=== PATIENT | female | born 1960 | race Caucasian/White ===

== ENCOUNTER 2020-06-09 08:38 | Inpatient (IN) ==
--- NOTE | 2020-06-02 13:29 | PAT Medication Instructions ---
Medication Instructions Date of Service June 02, 2020 Home Medications Sambucus 1 dose PO QAM albuterol sulfate 1 inh INHALATION QID PRN arginine oxoglurate [L-Arginine(alpha-ketoglutarat)] 350 mg PO QAM bupropion HCl 150 mg PO QAM bupropion HCl [Wellbutrin] 100 mg PO BID cholecalciferol (vitamin D3) [Vitamin D3] 25 mcg PO QAM fluticasone furoate-vilanterol [Breo Ellipta] 1 inh INHALATION QAM fluticasone propionate 1 spray INTRANASAL QAM milk thistle 1 cap PO QAM montelukast 10 mg PO QAM omalizumab [Xolair] 75 mg SUBCUT MONTHLY vitamin E 1 dose PO QAM ASK your prescriber and surgeon omalizumab [Xolair] 75 mg SUBCUT MONTHLY STOP taking 2 weeks before surgery (or as soon as possible if surgery is within 2 weeks) Sambucus 1 dose PO QAM arginine oxoglurate [L-Arginine(alpha-ketoglutarat)] 350 mg PO QAM milk thistle 1 cap PO QAM vitamin E 1 dose PO QAM DO NOT take the morning of surgery cholecalciferol (vitamin D3) [Vitamin D3] 25 mcg PO QAM montelukast 10 mg PO QAM Take morning of surgery With a small sip of water, OTHERWISE NOTHING TO EAT OR DRINK AFTER MIDNIGHT: albuterol sulfate 1 inh INHALATION QID PRN (use if needed; please bring rescue inhaler with you to hospital day of surgery if possible) bupropion HCl 150 mg PO QAM bupropion HCl [Wellbutrin] 100 mg PO BID fluticasone furoate-vilanterol [Breo Ellipta] 1 inh INHALATION QAM fluticasone propionate 1 spray INTRANASAL QAM Take evening before surgery albuterol sulfate 1 inh INHALATION QID PRN (if needed) bupropion HCl [Wellbutrin] 100 mg PO BID Other Notes If you have any questions please call us at [phone] or [phone] or [phone] or [phone]
--- NOTE | 2020-06-03 11:17 | Anesthesiology Consultation ---
Date of Service June 03, 2020 Assessment & Plan (1) Encounter for pre-operative examination: Per assessment on 06/03: Travel screen negative. No known COVID-19 positive contacts or current COVID-19 related symptoms. Surgeon arranged preop COVID testing (scheduled 06/03 [facility]). Awaiting results. Chart Review Chart Review: Acceptable Risk for Surgery and Patient seen in Pre Admission Testing Teaching & Discussion Pre-Anesthesia Teaching/Discussion Notes: Instructed NPO after midnight before surgery,except medications with 15 cc of water. Medication instructions provided according to the PAT guidelines. History Surgery Operation Date: 06/09/20 10:25 Proposed Procedures p L1-L2 Decompression and Fusion Spinal Cord Monitoring - Adrián Soto DO Height/Weight Height: 5 ft 2 in Weight: 82.4 kg Allergies Allergy/AdvReac Type Severity Reaction Status Date / Time walnut Allergy Severe Anaphylaxis Verified 06/03/20 11:30 No Known Drug Allergies Allergy Verified 05/14/20 13:20 Medications Home Medications Medication Instructions Recorded Confirmed Last Taken Sambucus 1 dose PO QAM 05/14/20 05/14/20 Unknown albuterol sulfate 1 inh INHALATION QID PRN 05/14/20 05/14/20 Unknown arginine oxoglurate 350 mg PO QAM 05/14/20 05/14/20 Unknown [L-Arginine(alpha-ketoglutarat)] bupropion HCl 150 mg PO QAM 05/14/20 05/14/20 Unknown bupropion HCl [Wellbutrin] 100 mg PO BID 05/14/20 05/14/20 Unknown cholecalciferol (vitamin D3) 25 mcg PO QAM 05/14/20 05/14/20 Unknown [Vitamin D3] fluticasone furoate-vilanterol 1 inh INHALATION QAM 05/14/20 05/14/20 Unknown [Breo Ellipta] fluticasone propionate 1 spray INTRANASAL QAM 05/14/20 05/14/20 Unknown milk thistle 1 cap PO QAM 05/14/20 05/14/20 Unknown montelukast 10 mg PO QAM 05/14/20 05/14/20 Unknown omalizumab [Xolair] 75 mg SUBCUT MONTHLY 05/14/20 05/14/20 Unknown vitamin E 1 dose PO QAM 05/14/20 05/14/20 Unknown ibuprofen 1 tab PO DAILY 06/03/20 06/03/20 Unknown Past Medical History Medical History Anxiety Asthma stable Chronic back pain History of endometriosis History of migraine headaches Osteoarthritis Sleep apnea CPAP Exercise / Class Metabolic Activity II 4-5 Yardwork/Stairs/Walk up hill Past Family History Family History Father Diabetes Mother History of anesthesia reaction vertigo Past Surgical History Surgical History History of appendectomy History of colonoscopy History of esophagogastroduodenoscopy (EGD) History of laparoscopy History of lumbar fusion History of tooth extraction Past Anesthesia History No Hx of Anesthesia Complications (except post-op nausea) and No Family Hx of Anesthesia Complications (except mother with post-op vertigo-like symptoms) History of PONV History of PONV (+ nausea) and Hx of Motion Sickness Social History Smoking Status: Never smoker Do You Dip or Chew Tobacco: No Hx Alcohol Use: No Hx Substance Use: No substance use type: does not use Review of Systems Patient denies chest pain, shortness of breath, dyspnea on exertion, joint pain, reflux, cough, wheezing, palpitations. Physical Exam Vital Signs VITALS BP 142/81 P 84 TEMP 98.7 SP02 96%RA RESP 18 PHYSICAL Full neck and c-spine range of motion. Full TMJ range of motion. TMD 3.5 finger breaths Mallampati Score 1 Dentition: intact, + crowns (several) Lungs: clear throughout to auscultation Cardiac: regular rate and rhythm, I/ systolic murmur Spine: normal Carotid arteries: negative bruit Extremities: no edema Short neck Testing Laboratory Results 06/03/20 11:41 06/03/20 11:41 PT 9.8 Seconds (9.0-12.0) 06/03/20 11:41 INR 1.0 (0.9-1.1) 06/03/20 11:41 APTT 25.7 Seconds (21.0-31.0) 06/03/20 11:41 Urine Color Yellow 06/03/20 11:41 Urine Appearance Clear (Clear) 06/03/20 11:41 Urine pH 5.5 (4.5-7.5) 06/03/20 11:41 Ur Specific [place] 1.020 (1.000-1.030) 06/03/20 11:41 Urine Protein Negative (Negative) 06/03/20 11:41 Urine Glucose (UA) Negative (Negative) 06/03/20 11:41 Urine Ketones Negative (Negative) 06/03/20 11:41 Urine Nitrite Negative (Negative) 06/03/20 11:41 Ur Leukocyte Esterase Negative (Negative) 06/03/20 11:41 Blood Type O Positive 06/03/20 11:41 Antibody Screen NEGATIVE 06/03/20 11:41 Electrocardiogram Date: 06/03/20 NSR at 85bpm. unconfirmed report. (need to look in [facility] system for EKG tracings > d/t glitch, tracings not crossing over into [employer] system per [facility]) Chest X-Ray Date: 06/03/20 FINDINGS: PA and lateral chest radiographs are compared to study dated 09/20/2012. The cardiomediastinal silhouette is unremarkable. The lungs and pleural spaces are clear. There is no pneumothorax. The skeletal structures are osteopenic. The bony thorax appears intact. Mild degenerative change is noted in the spine. IMPRESSION: No active disease in the chest.
[2020-06-03 12:23] LABS: Basophils # (auto) 0.02 K/uL (0-0.2); Basophils % (auto) 0.3 %; Eosinophils # (auto) 0.36 K/uL (0-0.5); Eosinophils % (auto) 4.9 %; Hematocrit (blood only) 41.1 % (37-47); Hemoglobin 13.6 g/dL (12.0-16.0); Immature Granulocytes # (auto) 0.04 K/uL (0.00-0.02); Immature Granulocytes % (auto) 0.5 %; Lymphocytes # (auto) 1.98 K/uL (1.2-3.4); Lymphocytes % (auto) 26.8 %; Mean Corpuscular Hemoglobin 30.2 pg (25-34); Mean Corpuscular Hgb Conc 33.1 g/dL (32-36); Mean Corpuscular Volume 91.3 fL (80-100); Mean Platelet Volume 9.6 fL (7.4-10.4); Monocytes # (auto) 0.42 K/uL (0.11-0.59); Monocytes % (auto) 5.7 %; Neutrophils # (auto) 4.58 K/uL (1.4-6.5); Neutrophils % (auto) 61.8 %; Platelet Count 242 K/uL (130-400); RDW Coefficient of Variation 13.6 % (11.5-14.5); RDW Standard Deviation 45.5 fL (36.4-46.3)
[2020-06-03 12:24] LABS: Appearance Urine Clear (Clear); Bilirubin Urine Negative (Negative); Blood Urine Negative (Negative); Color Urine Yellow; Glucose Urine UA Negative (Negative); Ketones Urine Negative (Negative); Leukocyte Esterase Urine Negative (Negative); Nitrite Urine Negative (Negative); Protein Urine Negative (Negative); Urobilinogen Urine Negative (Negative); pH Urine 5.5 (4.5-7.5)
[2020-06-03 12:34] LABS: Partial Thromboplastin Time 25.7 Seconds (21.0-31.0); Prothrombin Time 9.8 Seconds (9.0-12.0)
--- NOTE | 2020-06-03 12:43 | XRay Report ---
TWO VIEW CHEST CLINICAL HISTORY: Preoperative examination. FINDINGS: PA and lateral chest radiographs are compared to study dated 09/20/2012. The cardiomediastin al silhouette is unremarkable. The lungs and pleural spaces are clear. There is no pneumothorax. The skeletal structures are osteopenic. The bony thorax appears intact. Mild degenerative change is note d in the spine. IMPRESSION: No active disease in the chest. ACT 112: Negative or not required by law. Electronically signed by: Mac Boss M.D. 06/03/2020 12:42 PM
[2020-06-03 14:12] LABS: BUN Creatinine Ratio 18.3 (10-20); Calcium 8.4 mg/dl (8.5-10.1); Creatinine Clr Calc Pharmacy 87.7 ml/min; Est GFR (Non-African American) 94.9
--- NOTE | 2020-06-04 15:42 | Electrocardiogram Report ---
Test Reason : Blood Pressure : / mmHG Vent. Rate : 085 BPM Atrial Rate : 085 BPM P-R Int : 186 ms QRS Dur : 078 ms QT Int : 382 ms P-R-T Axes : 079 006 062 degrees QTc Int : 454 ms Normal sinus rhythm Normal ECG When compared with ECG of 20-SEP-2012 15:14, No significant change was found Confirmed by Liang Rey ([id number]) on 06/04/2020 3:41:42 PM Referred By: Adrián Soto Confirmed By:Liang Rey
[~2020-06-09 08:38] MED LIST: ACETAMINOPHEN 500 MG TAB PO SCH; CeleBREX 200 MG CAP PO SCH; GABAPENTIN 600 MG DOSE PO SCH; LR 15ML/HR IV SCH; ceFAZolin 1000MG 1,000 MG/7.5 ML SYR IV SCH; ceFAZolin 2000MG 2,000 MG/15 ML SYR IV SCH
[2020-06-09] MEDS ORDERED: PROPOFOL IV EMULSION 10 MG/ML 20 ML VIAL IV ONE (08:55)
[2020-06-09] MEDS ORDERED: LIDOCAINE HCL 2% 2 ML VIAL/AMP(20MG/ML) INFIL ONE (08:55)
[2020-06-09] MEDS ORDERED: HYDROmorphone INJ 2 MG/ML SYR/VIAL ONE (08:55)
[2020-06-09] MEDS ORDERED: ONDANSETRON INJ 2 MG/ML 2 ML VIAL ONE (08:55)
[2020-06-09] MEDS ORDERED: MIDAZOLAM HCL 1 MG/ML 2ML VIAL ONE (08:55)
[2020-06-09] MEDS ORDERED: ROCURONIUM BROMIDE 10 MG/ML 5 ML VIAL IV ONE (08:55)
[2020-06-09] MEDS ORDERED: DEXAMETHASONE SOD INJ 4 MG/ML VIAL ONE (08:55)
[2020-06-09] MEDS ORDERED: SCOPOLAMINE 1 MG TDSY TD ONE ×2 (09:40→09:42)
[2020-06-09] MEDS ORDERED: ePHEDrine sulfate 50 MG/ML AMP IV PRN (09:42)
[2020-06-09] MEDS ORDERED: ONDANSETRON INJ 2 MG/ML 2 ML VIAL IV PRN ×2 (09:42→13:02)
[2020-06-09] MEDS ORDERED: ATROPINE SULFATE 0.1 MG/ML 10ML SYR IV PRN (09:42)
[2020-06-09] MEDS ORDERED: fentaNYL citrate 100 MCG/2 ML VIAL IV PRN (09:42)
--- NOTE | 2020-06-09 09:56 | History & Physical Bridge Note ---
Date of Service June 09, 2020 History & Physical Bridge Note I have examined the patient, reviewed the History & Physical and in the interval since the performance of the History & Physical I have noted the following changes of clinical significance: no changes noted
--- NOTE | 2020-06-09 09:57 | History & Physical Report ---
Date of Service June 09, 2020 Assessment & Plan (1) Neurogenic claudication due to lumbar spinal stenosis: Admission and Anticipated Discharge Date Admission Date: L1-L2 decompression fusion History of Present Illness Chief Complaint: Back and bilateral leg pain Primary Care Provider: NO PCP This is a 59-year-old female known to me presents with chronic persistent back and leg pain. Failing course of nonoperative care is here for surgical intervention. Allergies Allergy/AdvReac Type Severity Reaction Status Date / Time walnut Allergy Severe Anaphylaxis Verified 06/09/20 09:08 No Known Drug Allergies Allergy Verified 06/09/20 09:08 Home Medications Medication Instructions Recorded Confirmed Type Sambucus 1 dose PO QAM 05/14/20 06/09/20 History albuterol sulfate 1 inh INHALATION QID PRN 05/14/20 06/09/20 History arginine oxoglurate 350 mg PO QAM 05/14/20 06/09/20 History [L-Arginine(alpha-ketoglutarat)] bupropion HCl 150 mg PO QAM 05/14/20 06/09/20 History bupropion HCl [Wellbutrin] 100 mg PO BID 05/14/20 06/09/20 History cholecalciferol (vitamin D3) 25 mcg PO QAM 05/14/20 06/09/20 History [Vitamin D3] fluticasone furoate-vilanterol 1 inh INHALATION QAM 05/14/20 06/09/20 History [Breo Ellipta] fluticasone propionate 1 spray INTRANASAL QAM 05/14/20 06/09/20 History milk thistle 1 cap PO QAM 05/14/20 06/09/20 History montelukast 10 mg PO QAM 05/14/20 06/09/20 History omalizumab [Xolair] 75 mg SUBCUT MONTHLY 05/14/20 06/09/20 History vitamin E 1 dose PO QAM 05/14/20 06/09/20 History ibuprofen 1 tab PO DAILY 06/03/20 06/09/20 History cetirizine [Zyrtec] 5 mg PO DAILY 06/09/20 06/09/20 History psyllium husk [Metamucil] 1 tbsp PO DAILY 06/09/20 06/09/20 History Past Med/Surg History Medical History (Updated 06/09/20 @ 09:56 by Adrián Soto DO) Anxiety mild Asthma stable Chronic back pain History of endometriosis History of migraine headaches Osteoarthritis Sleep apnea CPAP Surgical History History of appendectomy History of colonoscopy History of esophagogastroduodenoscopy (EGD) History of laparoscopy History of lumbar fusion History of tooth extraction Family History Father Diabetes Mother History of anesthesia reaction vertigo Social History Smoking Status: Never smoker Second Hand Exposure: No; Do You Dip or Chew Tobacco: No; Hx Alcohol Use: No Hx Substance Use: No Preferred Language: Trinidadian Communication Ability: Effective 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
[2020-06-09] MEDS ORDERED: BACITRACIN INJ 50,000 UNIT VIAL ONE (10:14)
[2020-06-09] MEDS ORDERED: BUPIVACAINE/EPINEPHRINE 0.5% MPF 1:200,000 30 ML VIAL ONE (10:14)
[2020-06-09] MEDS ORDERED: GLYCOPYRROLATE 0.2 MG/ML VIAL ONE (10:42)
[2020-06-09] MEDS ORDERED: NEOSTIGMINE METHYLSULFATE 1 MG/ML 10ML VIAL ONE (10:42)
[2020-06-09] MEDS ORDERED: FLOSEAL HEMOSTATIC MATRIX 10ML TOP ONE (11:04)
--- NOTE | 2020-06-09 11:47 | Operative Report ---
Post Operative Report Pre & Post Diagnosis Operation Date: 06/09/20 10:25 Pre-Op Diagnosis: Neurogenic claudication due to lumbar spinal stenosis. Intervetrebral Disc Degeneration, Lumbar Post-Op Diagnosis: Neurogenic claudication due to lumbar spinal stenosis. Intervetrebral Disc Degeneration, Lumbar I identified the patient and participated in the time-out.: Yes Procedure Operation Date: 06/09/20 10:25 Actual Procedures #1 Lumbar decompression with bilateral medial facetectomies and foraminotomies L1-L2. #2 posterior spinal fusion L1-L2. #3 placement posterior instrumentation L1-L2. #4 interbody fusion L1-L2. #5 placed a peek cage 9 x 26 mm at L1-L2. #6 placement locally harvested morselized autograft in the posterior gutters. #7 placement of I factor interbody space and posterior gutters. Surgeon Adrián Soto, DO Sensitizer Tawnya Dean Estimated Blood Loss 50 Findings See Below The patient is 5 foot 2 weighing over 80 kg with a BMI in excess of 32. Patient's body habitus did add significant technical difficulty acquiring at least 25% increase in the operative time. Specimens None Indications This is a 59-year-old female known to me the presents with above-mentioned diagnosis after failing extensive course of nonoperative care is here for the above-mentioned procedure. Description of Procedure Patient was met with identified informed consent obtained. Patient was then taken to the operative suite underwent a patient placed in a prone position the [employer] top [place] frame. All bony prominences well-padded eyes inspected to ensure no external pressure placed upon them. This point the lumbar spine was prepped and draped in a sterile fashion. Sharp dissection with assistance of Bovie cautery performed down to and exposing the lamina and transverse processes of L1 and L2. For calcified fashion complete laminectomy of L1 was performed including bilateral medial facetectomies and foraminotomies addressing severe spinal stenosis and obvious instability noted by facet hypertrophy and laxity. Pedicle screws then placed in L1 and L2 bilaterally with assistance of fluoroscopy and properly sized rodney placed. By way of a transforaminal portion right a complete discectomy was performed endplates curetted to subcortical bleeding bone and a 9 x 26 mm peek cage filled with I factor tapped in position. The rods and locked into final position bilaterally. The transverse processes of L1 and L2 burred to subcortical bleeding bone. Local autograft and I factor was then placed in the posterior gutters. 15 round ISAIAH drain inserted. The incision was then closed with 1 Vicryl the fascia 2-0 Vicryl subcutaneously and 4 Monocryl for final skin closure. Steri-Strip sterile dressings placed. Patient waken taken PACU stable condition. Please note spinal cord monitoring was utilized throughout the procedure no changes noted. Lastly Tawnya Dean was present at the entire surgery involved the patient positioning complex portions of the surgery and final skin closure. I attest to the content of the Intraoperative Record and any orders documented therein. Any exceptions are noted below.
--- NOTE | 2020-06-09 12:18 | Fluoroscopy Report ---
INTRAOPERATIVE RADIOGRAPHS CLINICAL HISTORY: L1-L2 spinal fusion. Fluoroscopy time: 24 seconds. FINDINGS: 2 spot fluoroscopic views of the lumbar spine are presented. There has been discectomy at L 1-L2 with laminectomy and posterior fusion at this level. Interpedicular screws are in place. The ort hopedic hardware appears intact. Fusion hardware is partially visualized in the lower lumbar spine. IMPRESSION: Intraoperative lumbar spinal fusion images as above. Electronically signed by: Mac Boss M.D. 06/09/2020 12:17 PM
[2020-06-09] MEDS ORDERED: ONDANSETRON 4 MG OD TAB PO PRN (13:02)
[2020-06-09] MEDS ORDERED: DO NOT ADMINISTER FLU VACCINE PRN (13:02)
[2020-06-09] MEDS ORDERED: SOD PHOSPHATE/SOD BIPHOSPHATE ENEMA 132 ML BTL PR PRN (13:02)
[2020-06-09] MEDS ORDERED: ACETAMINOPHEN 500 MG TAB PO PRN (13:02)
[2020-06-09] MEDS ORDERED: hydrOXYzine HCl 25 MG TAB PO PRN (13:02)
[2020-06-09] MEDS ORDERED: LORazepam 0.5 MG TAB PO PRN (13:02)
[2020-06-09] MEDS ORDERED: diphenhydrAMINE Capsule 25 MG CAP PO PRN (13:02)
[2020-06-09] MEDS ORDERED: METOCLOPRAMIDE HCL INJ 5 MG/ML 2 ML VIAL IV PRN (13:02)
[2020-06-09] MEDS ORDERED: ALUMINUM/MAGNESIUM SUSP 30 ML UDC PO PRN (13:02)
[2020-06-09] MEDS ORDERED: LORazepam 0.5 MG/1 ML VIAL IV PRN (13:02)
[2020-06-09] MEDS ORDERED: MAGNESIUM HYDROXIDE SUSP 30 ML UDC PO PRN (13:02)
[2020-06-09] MEDS ORDERED: ACETAMINOPHEN 1,000 MG/100 ML VIAL IV PRN (13:02)
[2020-06-09] MEDS ORDERED: oxyCODONE HCL IR 5 MG TAB (IMMEDIATE RELEASE) PO PRN (13:02)
[2020-06-09] MEDS ORDERED: NALOXONE HCL 0.4 MG/1 ML VIAL/CARP IV PRN (13:02)
[2020-06-09] MEDS ORDERED: PROMETHAZINE HCL 12.5 MG in SODIUM CHLORIDE 0.9% 50 ML IV PRN (13:02)
[2020-06-09] MEDS ORDERED: DO NOT ADMINISTER PNEUMOCOCCAL VACCINE PRN (13:02)
[2020-06-09] MEDS ORDERED: FAMOTIDINE 20 MG TAB PO PRN (13:02)
--- NOTE | 2020-06-09 13:20 | Anesthesiology Progress Note ---
Date of Service June 09, 2020 Anesthesia Post Procedure Vital Signs Vital Signs: Temp Pulse Pulse Resp BP BP Pulse Ox 06/09/20 12:35 97.5 F L 84 14 157/89 H 97 06/09/20 12:25 97.5 F L 84 14 159/87 H 97 06/09/20 12:15 87 14 149/84 H 98 06/09/20 12:05 84 14 139/83 94 06/09/20 11:59 97.5 F L 81 14 125/84 97 06/09/20 09:15 98.1 F 92 H 20 132/72 99 Pain Intensity Lower Back: Pain Intensity: 7 Transfer of Care Handoff Completed per policy Notes Mental Status: alert / awake / arousable and participated in evaluation Patient Amnestic to Procedure: Yes Nausea / Vomiting: adequately controlled Pain: adequately controlled Airway Patency, RR, SpO2: stable & adequate BP & HR: stable & adequate Hydration State: stable & adequate Anesthetic Complications: no major complications apparent and Pt Satisfied with anesthetic care
[2020-06-09] MEDS ORDERED: ALBUTEROL HFA 8 GM INHALER INH PRN (13:21)
[2020-06-09] MEDS: LACTATED RINGER'S 1,000 ML IV SCH ×2 (13:48→22:52)
[2020-06-09] MEDS: KETOROLAC TROMETHAMINE 15 MG/ML VIAL IV SCH ×2 (13:49→18:17)
--- NOTE | 2020-06-09 15:02 | Consultation ---
Date of Consultation June 09, 2020 Assessment & Plan (1) Neurogenic claudication due to lumbar spinal stenosis: S/P L1-L2 Lumbar Fusion EBL 50ml: ISAIAH Drain 110ml Tolerated procedure well Pain/wound management per ortho activity/therapy/diet as directed by ortho encourage incentive spirometry and wean O2 at able monitor H/H (2) Asthma: no acute exac continue breo, prn albuterol and singulair (3) Anxiety: with depression continue wellbutrin mood stable (4) Sleep apnea: CPAP at , pt unsure of current settings PCP: MD [facility] Dispo: med/surg, per primary FULL CODE Thank you for this consultation. We will follow the patient with you during their hospital stay. You [facility] a [facility] via pager @ [phone]. (5) Post-operative state: Supervising Physician Co-Signing Physician Notes I have seen and examined the patient and have discussed the case with the provider above. I agree with the assessment and plan as stated. 59 yo F s/p back surgery initially didn't feel well post-operatively but then improved after getting some sleep. Tolerating PO. Heart and lung exam normal. No numbness or pain in feet. She is in a good mood and appreciative of her care. Cont current plan per Ortho. sms History of Present Illness Requesting Physician: Dr. Soto Reason for Consultation: Post op med management Attending Physician: Adrián Soto, History of Present Illness This is a 59-year-old female who has significant past medical history of asthma, depression with anxiety, chronic low back pain, ALOK on CPAP who presents for elective lumbar procedure by Dr. Soto. She underwent L1-L2 spinal fusion and tolerated procedure well. Currently complains of incisional pain. She feels very drowsy and slightly lightheaded. She denies presyncope or syncope. She denies any fever, chills, sweats, chest pain, shortness breath, cough, nausea, vomiting, abdominal pain, change in bowel or urinary habits. Patient does have history of asthma on daily Breo. She has not required her rescue inhaler. She denies any respiratory symptoms. She is compliant with her CPAP at bedtime but is unsure what her settings are. Patient follows PCP at [facility]. She is a teacher at [employer]. Allergies Allergy/AdvReac Type Severity Reaction Status Date / Time walnut Allergy Severe Anaphylaxis Verified 06/09/20 09:08 No Known Drug Allergies Allergy Verified 06/09/20 09:08 Home Medications Medication Instructions Recorded Confirmed Type Sambucus 1 dose PO QAM 05/14/20 06/09/20 History albuterol sulfate 1 inh INHALATION QID PRN 05/14/20 06/09/20 History arginine oxoglurate 350 mg PO QAM 05/14/20 06/09/20 History [L-Arginine(alpha-ketoglutarat)] bupropion HCl 150 mg PO QAM 05/14/20 06/09/20 History bupropion HCl [Wellbutrin] 100 mg PO BID 05/14/20 06/09/20 History cholecalciferol (vitamin D3) 25 mcg PO QAM 05/14/20 06/09/20 History [Vitamin D3] fluticasone furoate-vilanterol 1 inh INHALATION QAM 05/14/20 06/09/20 History [Breo Ellipta] fluticasone propionate 1 spray INTRANASAL QAM 05/14/20 06/09/20 History milk thistle 1 cap PO QAM 05/14/20 06/09/20 History montelukast 10 mg PO QAM 05/14/20 06/09/20 History omalizumab [Xolair] 75 mg SUBCUT MONTHLY 05/14/20 06/09/20 History vitamin E 1 dose PO QAM 05/14/20 06/09/20 History ibuprofen 1 tab PO DAILY 06/03/20 06/09/20 History cetirizine [Zyrtec] 5 mg PO DAILY 06/09/20 06/09/20 History oxycodone 5 mg PO Q6H PRN #30 tab 06/09/20 Rx psyllium husk [Metamucil] 1 tbsp PO DAILY 06/09/20 06/09/20 History tramadol 50 mg PO Q6H PRN #30 tab 06/09/20 Rx Patient History Medical History (Updated 06/09/20 @ 15:12 by Francine Robles PA-C) Anxiety mild Asthma stable Chronic back pain History of endometriosis History of migraine headaches Osteoarthritis Sleep apnea CPAP Surgical History (Updated 06/10/20 @ 00:09 by Mayra Abraham DO) History of appendectomy History of colonoscopy History of esophagogastroduodenoscopy (EGD) History of laparoscopy History of lumbar fusion History of tooth extraction Family History Father Diabetes Mother History of anesthesia reaction vertigo Social History Smoking Status: Never smoker Second Hand Exposure: No; Do You Dip or Chew Tobacco: No; Hx Alcohol Use: No Hx Substance Use: No Preferred Language: Swiss Communication Ability: Effective [employer] Required: No Beliefs That Will Affect Care: Uatsdin Uatsdin Beliefs: Uatsdin Current Living Situation: Spouse Feels Safe at Home: Yes Safety Concerns: Feels Safe At This Time Assistive Devices: None Review of Systems Review of Systems: All systems reviewed & are unremarkable except as noted in HPI & below Physical Exam Physical Exam: Constitutional: WD/WN, vitals as above, NAD, sitting up in bed, pleasant, conversing easily Head: Normocephalic, Atraumatic Eyes: PERRL, conjunctivae normal, anicteric sclerae ENMT: external ear and nose normal, oropharynx normal Neck: trachea midline, no thyromegaly normal visual inspection Respiratory: normal respiratory effort, lungs clear to auscultation, no wheeze, rales, rhonchi. Normal insp/exp effort, no accessory muscle use Cardiovascular: RRR, no murmur, no edema Vessels: no JVD or carotid bruit Chest: normal inspection of chest Abdomen: normal bowel sounds, soft, nontender, no hepatosplenomegaly Musculoskeletal: no cyanosis or clubbing, AROM x 4, lumbar dressing CDI, ISAIAH drain with serosang drainage, nvi distally Skin: no rashes, warm and dry normal turgor Neurologic: PERRL, EOMI, accommodation nl, no face palsy, no dysarthria CN's II-XI intact bilaterally and moves all extremities Psychiatric: A+Ox3, euthymic affect Lymphatic: no cervical or axillary lymphadenopathy : deferred - no mir placed Results & Data ([facility]) Vital Signs (Past 12 Hours) Vital Signs Temp Pulse Pulse Resp BP BP Pulse Ox 06/09/20 13:50 36.4 C L 88 16 133/84 95 06/09/20 13:20 81 18 136/84 95 06/09/20 12:50 36.4 C L 91 H 16 146/90 H 95 06/09/20 12:35 36.4 C L 84 14 157/89 H 97 06/09/20 12:25 36.4 C L 84 14 159/87 H 97 06/09/20 12:15 87 14 149/84 H 98 06/09/20 12:05 84 14 139/83 94 06/09/20 11:59 36.4 C L 81 14 125/84 97 06/09/20 09:15 36.7 C 92 H 20 132/72 99 Laboratory Results Pre op labs 06/03/30 WBC 7.40, H&H 13.6 and 41.1, platelet 242 BMP: Sodium 140, K4.0, chloride 109, BUN 12, creatinine 0.67 Urinalysis negative Diagnostic Findings CXR: IMPRESSION: No active disease in the chest. Lumbar Spine Xray: FINDINGS: 2 spot fluoroscopic views of the lumbar spine are presented. There has been discectomy at L1-L2 with laminectomy and posterior fusion at this level. Interpedicular screws are in place. The orthopedic hardware appears intact. Fusion hardware is partially visualized in the lower lumbar spine. IMPRESSION: Intraoperative lumbar spinal fusion images as above. Medications Administered Acetaminophen (Acetaminophen 500 Mg Tab) 1,000 mg PO PREOP ROMMEL Stop: 06/09/20 18:00 Last Admin: 06/09/20 09:03 Dose: 1,000 mg Documented by: [id number] Celecoxib (Celebrex 200 Mg Cap) 200 mg PO PREOP ROMMEL Stop: 06/09/20 18:00 Last Admin: 06/09/20 09:03 Dose: 200 mg Documented by: [id number] Gabapentin (Gabapentin 600 Mg Dose) 600 mg PO PREOP ROMMEL Stop: 06/09/20 18:00 Last Admin: 06/09/20 09:03 Dose: 600 mg Documented by: [id number] Cefazolin Sodium (Ancef 2000mg) 2,000 mg in 15 mls @ 3.75 mls/min IV PREOP ROMMEL; Protocol Stop: 06/09/20 18:00 Last Admin: 06/09/20 10:26 Dose: 3.75 mls/min Documented by: [id number] Lactated Ringer's (Lr) 1,000 mls @ 15 mls/hr IV .Q24H [facility] Stop: 06/10/20 05:59 Last Infusion: 06/09/20 10:30 Dose: 0 mls/hr Documented by: [id number] Admin: 06/09/20 09:37 Dose: 15 mls/hr Documented by: [id number] Lactated Ringer's (Lr) 1,000 mls @ 100 mls/hr IV .Q10H [facility] Stop: 07/09/20 13:01 Last Admin: 06/09/20 13:48 Dose: 100 mls/hr Documented by: [id number] Ketorolac Tromethamine (Ketorolac Tromethamine 15 Mg/Ml Vial) 15 mg IV Q6H [facility] Stop: 06/10/20 07:03 Last Admin: 06/09/20 13:49 Dose: 15 mg Documented by: [id number] Discontinued Medications Bacitracin (Bacitracin Inj 50,000 Unit Vial) Confirm Administered Dose 50,000 units .ROUTE .STK-MED ONE Stop: 06/09/20 10:15 Last Admin: 06/09/20 11:35 Dose: 50,000 units Documented by: [id number] Bupivacaine HCl/Epinephrine Bitart (Bupivacaine/Epinephrine 0.5% Mpf 1:200,000 30 Ml Vial) Confirm Administered Dose 30 ml .ROUTE .STK-MED ONE Stop: 06/09/20 10:15 Last Admin: 06/09/20 11:08 Dose: 20 ml Documented by: [id number] Miscellaneous ( Floseal Hemostatic Matrix 10ml) 20 ml TOP ONCE ONE Stop: 06/09/20 11:05 Last Admin: 06/09/20 11:36 Dose: 10 ml Documented by: [id number] Scopolamine (Scopolamine 1 Mg Tdsy) Confirm Administered Dose 1 mg TD .STK-MED ONE Stop: 06/09/20 09:41 Last Admin: 06/09/20 09:41 Dose: 1 mg Documented by: [id number] Scopolamine (Scopolamine 1 Mg Tdsy) 1 mg TD NOW ONE Stop: 06/09/20 09:43 Last Admin: 06/09/20 10:29 Dose: Not Given Documented by: [id number] ECG Rate (beats per minute): 85 Rhythm: normal sinus
[2020-06-09] MEDS: CHECK SCOPOLAMINE PATCH PLACEMENT SCH ×2 (16:30→22:53)
[2020-06-09] MEDS: ceFAZolin 2000MG 2,000 MG/15 ML SYR IV SCH (18:04)
[2020-06-09] MEDS: DOCUSATE SODIUM/SENNA 50/8.6MG TAB PO SCH (20:18)
[2020-06-09] MEDS: MONTELUKAST SODIUM 10 MG TABLET PO SCH (20:18)
[2020-06-09] MEDS: traMADol HCL 50 MG TABLET PO PRN (20:18)
[2020-06-09] MEDS: buPROPion SR 100 MG TABCR PO SCH (20:18)
[2020-06-10] MEDS: KETOROLAC TROMETHAMINE 15 MG/ML VIAL IV SCH ×2 (00:50→06:46)
[2020-06-10] MEDS: traMADol HCL 50 MG TABLET PO PRN ×5 (02:35→20:50)
[2020-06-10] MEDS: ceFAZolin 2000MG 2,000 MG/15 ML SYR IV SCH (02:35)
[2020-06-10] MEDS: POLYETHYLENE (MIRALAX) 17 GM PACK PO SCH ×4 (05:42→23:39)
[2020-06-10 06:30] LABS: Basophils # (auto) 0.01 K/uL (0-0.2); Basophils % (auto) 0.1 %; Eosinophils # (auto) 0.04 K/uL (0-0.5); Eosinophils % (auto) 0.3 %; Hematocrit (blood only) 36.5 % (37-47); Hemoglobin 11.9 g/dL (12.0-16.0); Immature Granulocytes # (auto) 0.03 K/uL (0.00-0.02); Immature Granulocytes % (auto) 0.2 %; Lymphocytes # (auto) 1.38 K/uL (1.2-3.4); Lymphocytes % (auto) 10.5 %; Mean Corpuscular Hemoglobin 29.7 pg (25-34); Mean Corpuscular Hgb Conc 32.6 g/dL (32-36); Mean Platelet Volume 9.3 fL (7.4-10.4); Monocytes # (auto) 0.73 K/uL (0.11-0.59); Monocytes % (auto) 5.6 %; Neutrophils # (auto) 10.91 K/uL (1.4-6.5); Neutrophils % (auto) 83.3 %; Platelet Count 211 K/uL (130-400); RDW Coefficient of Variation 13.5 % (11.5-14.5); Red Blood Count 4.01 M/uL (4.2-5.4)
[2020-06-10 07:11] LABS: BUN Creatinine Ratio 11.5 (10-20); Creatinine Clr Calc Pharmacy 72.3 ml/min; Est GFR (African American) 92.2; Est GFR (Non-African American) 79.6; Potassium 3.9 mmol/L (3.5-5.1)
[2020-06-10] MEDS: FLUTICASONE PROPIONATE NA SPR 16 GM BTL SCH (08:29)
[2020-06-10] MEDS: FLUTICASONE/VILANTEROL 100/25MCG 14 PUFFS/INHALER INH SCH (08:29)
[2020-06-10] MEDS: buPROPion SR 100 MG TABCR PO SCH ×2 (08:30→20:51)
[2020-06-10] MEDS: CHOLECALCIFEROL 1,000 UNITS 25 MCG TAB PO SCH (08:30)
[2020-06-10] MEDS: buPROPion SR 150 MG TABCR PO SCH (08:30)
[2020-06-10] MEDS: CETIRIZINE HCL 10 MG TABLET PO SCH (08:30)
--- NOTE | 2020-06-10 09:21 | Orthopedic Progress Note ---
Date of Service June 10, 2020 Assessment & Plan (1) Neurogenic claudication due to lumbar spinal stenosis: Admission and Anticipated Discharge Date Admission Date: June 09, 2020 At this time we will continue physical therapy monitor ISAIAH output anticipate possible discharge home tomorrow. Subjective Back pain controlled leg pain improved Physical Exam Physical Exam: Patient is good strength testing appears comfortable. She is sitting at the bedside chair. Results & Data ([facility]) Vital Signs (Past 12 Hours) Vital Signs Temp Pulse Resp BP Pulse Ox 06/10/20 08:10 36.9 C 76 17 125/84 97 06/10/20 01:00 36.9 C 78 18 137/78 95
[2020-06-10] MEDS: CHECK SCOPOLAMINE PATCH PLACEMENT SCH ×2 (09:26→16:10)
[2020-06-10] MEDS: dexAMETHasone 8 MG in SYRINGE 0 ML IV SCH (10:28)
--- NOTE | 2020-06-10 14:32 | Hospitalist Progress Note ---
Date of Service June 10, 2020 Assessment & Plan (1) Neurogenic claudication due to lumbar spinal stenosis: Lumbar spinal stenosis with neurogenic claudication S/P lumbar decompression, fusion surgery Pain/wound management, activity, DVT Px as per Primary team Continue PT OT Continue incentive spirometry Bowel regimen to prevent constipation Pain is controlled Monitor CBC Leukocytosis Likely secondary to dexamethasone Monitor (2) Asthma: No signs of acute exacerbation Continue home inhalers (3) Anxiety: Mood disorder continue Wellbutrin stable (4) Sleep apnea: CPAP at HS DVT prophylaxis As per primary team CODE STATUS FULL CODE Thank you for this consultation. We will follow the patient with you during their hospital stay. You can reach a member of the [facility]ist Team 18/10 via pager @ [phone]. (5) Post-operative state: Admission and Anticipated Discharge Date Admission Date: June 09, 2020 Subjective Patient is seen and examined at bedside Back pain at surgical site is controlled Chronic right leg numbness unchanged Denies chest pain, dyspnea, dizziness, nausea, abdominal pain Offers no other complaints No BM today Review of Systems Review of Systems: All systems reviewed & are unremarkable except as noted in HPI & below Physical Exam Physical Exam: Physical Exam: Vitals signs as noted above General Appearance:Obese, no apparent distress Head: normocephalic, Atraumatic Eyes: normal inspection, EOMI Neck: supple, Trachea midline Respiratory/Chest: Normal breath sounds, CTA Cardiovascular: S1, S2, No murmur Abdomen/GI:Soft, Non tender, Bowel sounds present Back: Surgical site in dressing, +Drain Extremities/Musculoskeletal:normal inspection, no edema Neurologic/Psych:AAOX3, grossly no focal neurological deficits Skin: normal color, warm Results & Data Results & Data ([facility]) Vital Signs (Past 12 Hours) Vital Signs Temp Pulse Resp BP Pulse Ox 06/10/20 11:40 36.8 C 72 16 128/84 94 06/10/20 08:10 36.9 C 76 17 125/84 97 Laboratory Results Short CBC 06/10/20 Range/Units 06:19 WBC 13.10 H (4.8-10.8) K/uL Hgb 11.9 L (12.0-16.0) g/dL Hct 36.5 L (37-47) % Plt Count 211 (130-400) K/uL BMP 03/16/21 06:19 Sodium 139 Potassium 3.9 Chloride 107 Carbon Dioxide 25 BUN 9 Creatinine 0.80 Glucose 122 H Calcium 8.0 L
[2020-06-10] MEDS: DOCUSATE SODIUM/SENNA 50/8.6MG TAB PO SCH (20:51)
[2020-06-10] MEDS: MONTELUKAST SODIUM 10 MG TABLET PO SCH (20:51)
[2020-06-10] MEDS: HYDROmorphone INJ 1 MG/ML SYRINGE IV PRN (21:53)
[2020-06-11] MEDS: CHECK SCOPOLAMINE PATCH PLACEMENT SCH ×2 (00:01→08:35)
[2020-06-11] MEDS: POLYETHYLENE (MIRALAX) 17 GM PACK PO SCH ×2 (05:05→12:05)
[2020-06-11] MEDS: HYDROmorphone INJ 1 MG/ML SYRINGE IV PRN (05:06)
[2020-06-11 07:04] LABS: Basophils # (auto) 0.01 K/uL (0-0.2); Basophils % (auto) 0.1 %; Eosinophils # (auto) 0.12 K/uL (0-0.5); Eosinophils % (auto) 1.1 %; Hematocrit (blood only) 37.8 % (37-47); Hemoglobin 12.2 g/dL (12.0-16.0); Immature Granulocytes # (auto) 0.05 K/uL (0.00-0.02); Immature Granulocytes % (auto) 0.5 %; Lymphocytes % (auto) 19.6 %; Mean Corpuscular Hemoglobin 29.9 pg (25-34); Mean Corpuscular Hgb Conc 32.3 g/dL (32-36); Mean Corpuscular Volume 92.6 fL (80-100); Mean Platelet Volume 9.7 fL (7.4-10.4); Monocytes # (auto) 0.95 K/uL (0.11-0.59); Monocytes % (auto) 8.9 %; Neutrophils # (auto) 7.49 K/uL (1.4-6.5); Neutrophils % (auto) 69.8 %; Platelet Count 222 K/uL (130-400); RDW Coefficient of Variation 13.8 % (11.5-14.5); RDW Standard Deviation 47.2 fL (36.4-46.3); Red Blood Count 4.08 M/uL (4.2-5.4); White Blood Count 10.72 K/uL (4.8-10.8)
[2020-06-11 07:37] LABS: BUN Creatinine Ratio 16.7 (10-20); Calcium 8.4 mg/dl (8.5-10.1); Est GFR (African American) 111.1; Est GFR (Non-African American) 95.8; Magnesium 2.1 mg/dl (1.8-2.4); Potassium 4.1 mmol/L (3.5-5.1)
[2020-06-11] MEDS: FLUTICASONE PROPIONATE NA SPR 16 GM BTL SCH (08:35)
[2020-06-11] MEDS: buPROPion SR 150 MG TABCR PO SCH (08:36)
[2020-06-11] MEDS: FLUTICASONE/VILANTEROL 100/25MCG 14 PUFFS/INHALER INH SCH (08:36)
[2020-06-11] MEDS: buPROPion SR 100 MG TABCR PO SCH (08:36)
[2020-06-11] MEDS: CHOLECALCIFEROL 1,000 UNITS 25 MCG TAB PO SCH (08:36)
[2020-06-11] MEDS: CETIRIZINE HCL 10 MG TABLET PO SCH (08:37)
[2020-06-11] MEDS: dexAMETHasone 8 MG in SYRINGE 0 ML IV SCH (08:38)
[2020-06-11] MEDS: HYDROmorphone INJ 0.5 MG/0.5 ML SYR IV PRN ×2 (10:10→13:58)
--- NOTE | 2020-06-11 10:13 | Discharge Summary ---
Date of Service June 11, 2020 Admission HPI Per Admitting Provider This is a 59-year-old female known to me presents with chronic persistent back and leg pain. Failing course of nonoperative care is here for surgical intervention. Principal Diagnosis Lumbar spinal stenosis with neurogenic claudication Discharge Data Allergies Allergy/AdvReac Type Severity Reaction Status Date / Time walnut Allergy Severe Anaphylaxis Verified 06/09/20 09:08 No Known Drug Allergies Allergy Verified 06/09/20 09:08 Consultations 06/09/20 13:02 Consult Case Management - Discharge Planning Routine Consult Hospitalist Routine Procedures Performed Operation Date: 06/09/20 10:25 Actual Procedures p L1-L2 Decompression and Fusion, Interbody Cage L1-L2 with Spinal Cord Monitoring - Adrián Soto DO Ordered Studies 06/09/20 10:25 FL fluoroscopy <1hr Routine FL lumbar spine 2-3V Routine Hospital Course (1) Neurogenic claudication due to lumbar spinal stenosis: Patient with lumbar decompression fusion tolerated so was taken to orthopedic for postoperative. Postop day and when she was up and ambulate postop day 2 she is excellent strength testing pain well controlled ISAIAH drain decreasing appropriate. Septic discharge home. Discharge orders and instruct ions from the chart for further review. Total Time Total Time Spent Total Time Spent (In Minutes): 20 minutes Discharge Plan Discharge Items Patient Disposition: Home - Self-Care Reason For Visit: Other Intervetrebral Disc Degeneration, Lumbar Discharge Diagnosis: Lumbar spinal stenosis with neurogenic claudication Activity: As commented below Non-emergency contact: Primary Care Provider Call non-emergency contact if: you have any medication questions Follow-up/Referrals: PCP,NO [Primary Care Provider] - Diet: Regular Addtl Attending Provider Instructions: ACTIVITY RECOMMENDATIONS: SELF CARE INSTRUCTIONS AFTER THORACIC/LUMBAR FUSIONS 1. You may walk to your tolerance. It is good exercise for your legs and back. Expect some back and intermittent leg aches and pains. 2. You may perform "counter-top" level activities (make a sandwich, maryan with a project, etc.). 3. No bending or lifting of more than 10 pounds or back twisting of any nature (roll like a log when turning in bed). 4. You may ride in a car for 20-30 minutes at a time. No driving until after your first visit with your doctor. 5. Frequent changes of position and restricting sitting to 30 minutes at a time will help limit the amount of back spasms and stiffness you may experience. 6. You may discontinue the use of ambulatory aids (cane, crutches, etc.) once your strength and confidence allow. 7. You may timekeeping supervisor the shower and let water strike your incision when you arrive home at least once daily. Do not take a tub bath, sit in a hot tub or go into a swimming pool until after your first recheck in the office. SPECIAL CARE INSTRUCTIONS: VERY IMPORTANT TO READ AND REVIEW A. Your surgical incision has been closed with a cosmetic suture under the skin that will dissolve in about 6 weeks. In 14 days, you can use a pair of clean scissors and cut the suture that is left outside of the skin at the ends of your incision. 1. The small skin tapes can be removed 7 days after surgery if they have not fallen off by that point. 2. You may keep the wound open to air as much as possible to promote healing after post-op day number 5 unless told otherwise by your doctor. 3. If you think the wound looks like it is becoming infected (redness or worsening drainage) and/or you are experiencing fever, chill or worsening back pain and muscle spasms, contact the office so that we may evaluate you as soon as possible. B. Complications are uncommon, but please contact us if you have any signs or symptoms of: 1. wound infection (fever higher than 102.5 degrees F, redness, separation of wound, drainage, or increasing pain from the incision) 2. blood clots in legs (pain, swelling, redness and warmth in legs) 3. urinary tract infection (fever higher than 102.5 degrees F, burning upon urination or increased frequency of urination) 4. nerve problems (inability to walk on your toes or heels, numbness, loss of bowel or bladder control) 5. any other symptoms that concern you C. Please call the office at if you have any concerns or questions about your operation or recovery. D. No smoking! Smoking drastically decreases the chance of a solid fusion. E. Do not take any anti-inflammatory medications (Indocin, Advil, Motrin, Aspirin, Naprosyn, etc.) as these may inhibit the chance of a solid fusion. Tylenol is okay to take for pain. MANAGING PAIN AFTER SPINAL SURGERY 1. Narcotic medication is intended for short-term use and will be provided for surgical pain. Surgical pain usually lasts for a period of 4-6 weeks. Narcotic medication includes Percocet, Vicodin, Darvocet, Tylenol #3 or Lortab. 2. Longer-term pain is more appropriately treated with non-narcotic medication such as Tylenol ES. 3. Muscle spasm is not appropriately treated with narcotics. Muscle relaxers such as Soma, Flexeril or Skelaxin can be used along with Tylenol ES. 4. Remember that we all live with some "aches and pains". This is not unusual or uncommon after an injury or as we get older. a. Back pain is expected and may include muscle spasms for 4 to 6 weeks after surgery. The pain should gradually improve. If the pain worsens for no apparent reason, please contact the office. b. Intermittent leg pain may also be experienced and should not be concerned about unless it worsens for no apparent reason. If so, please contact the office. 5. We will provide appropriate medication within the normal guidelines of their prescribed use. We will also be very cautious and aware of potential abuse and extended duration of patients' medication needs. a. Pain medications are for your comfort and to assist with sleep and rest so that the tissue can heal. They are not provided in order to return to normal activity and should not be used through the day. To do so or worsening pain at night can result from ongoing tissue damage and development of tolerance to the prescribed medicine. 6. Please allow 2-3 days to process refills. Prescriptions will not be mailed but must be picked up at the office. FOLLOW UP VISIT: Keep your scheduled follow-up appointment. Any questions, please call the office at . Pending Studies at Discharge: No Stand-Alone Forms: My [employer], Smoking Cessation Medications and DC Order Prescriptions: New tramadol 50 mg tablet 50 mg PO Q6H PRN (Reason: pain, moderate) Qty: 30 RF: 0 Continued bupropion HCl 100 mg Tablet 100 mg PO BID RF: 0 montelukast 10 mg Tablet 10 mg PO QAM RF: 0 fluticasone propionate 50 mcg/actuation [place],Suspension 1 spray INTRANASAL QAM RF: 0 bupropion HCl 150 mg Tablet Extended Release 24 Hr 150 mg PO QAM RF: 0 Breo Ellipta 100-25 mcg/dose Blister With Device 1 inh INHALATION QAM RF: 0 albuterol sulfate 90 mcg/actuation Aerosol Powdr Breath Activated 1 inh INHALATION QID PRN (Reason: sob) RF: 0 cholecalciferol (vitamin D3) [Vitamin D3] 25 mcg (1,000 unit) Capsule 25 mcg PO QAM RF: 0 L-Arginine(alpha-ketoglutarat) 350 mg Tablet Extended Release 350 mg PO QAM RF: 0 Xolair 75 mg/0.5 mL Syringe 75 mg SUBCUT MONTHLY RF: 0 Sambucus 1 dose PO QAM RF: 0 milk thistle 1 cap PO QAM RF: 0 vitamin E 1 dose PO QAM RF: 0 ibuprofen 1 tab PO DAILY RF: 0 cetirizine 5 mg Tablet 5 mg PO DAILY RF: 0 Metamucil 3.4 gram/5.4 gram Powder 1 tbsp PO DAILY RF: 0 Discharge Orders: Discharge Order (Routine); Ordered 06/11/20 Ordered By: Adrián Soto Admission Data Admit Date/Time: 06/09/20 12:15 Attending Provider: Adrián Soto Admit Provider: Adrián Soto Primary Care Provider: PCP,NO Other Providers: Otoniel Lerner ; Ramona Holden
[2020-06-11] MEDS ORDERED: bisacodyL 10 MG SUPP PR PRN (11:49)
== END 2020-06-11 14:29 | disposition home or self-care (01) | DRG 455 ==
LOC: ASU 08:38 → 3E 12:15

== ENCOUNTER 2020-07-29 18:16 | Inpatient (IN) ==
[2020-07-29] MEDS ORDERED: SODIUM CHLORIDE 0.9% 1000ML 1,000 ML IV ONE (20:06)
--- NOTE | 2020-07-29 20:16 | Emergency Department Note ---
Impression & Plan Elevated LFTs, Nausea ED Provider Note Provider: Pedro Mccord MD DATE OF SERVICE: 07/29/2020 CHIEF COMPLAINT: Nausea, lab abnormalities HISTORY OF PRESENT ILLNESS: Patient is a 59-year-old female with a past medical history including asthma, both lumbar stenosis status post surgery last May of this year, and diverticulitis presenting here referred by gastroenterology today due to ongoing nausea issues as well as LFT abnormalities. Patient states her back surgery went well in middle of May with Dr. Soto here. Since that time ever she states she had significant nausea prickly when eating and prickly some left-sided abdominal pain at times. States feels different when she had diverticulitis in the past. States has had some intermittent low-grade fevers as well as some chills at times. Reports over the past several days has been a little bit more tachycardic. States that she use some Rolaids which has not helped. Is not been other significant pain medications recently or nausea medicines as he does not like to take medicines. States she has been feeling weak and went to see Dr. Rockwell today. Had an outpatient CT scan and blood work earlier showed some mild LFT abnormalities but no significant findings in the CT. States referred here by him. States she wants to know was going on and to feel better. Denies significant back pain or rash or numbness or tingling in lower extremities. Has occasionally used a little bit of Tylenol but not today and denies significantly elevated temperature today. She states her back wound has been looking well without significant discharge. Patient states occasionally she has a slight cough. REVIEW OF SYSTEMS: A total of 10 review of systems was obtained and negative except as stated above in the HPI. PAST MEDICAL HISTORY: As noted above MEDICATIONS: Reviewed home medication list. SOCIAL HISTORY: resource specialist teacher, lives at home with , denies significant alcohol use PHYSICAL EXAM: GENERAL: alert and oriented in no acute distress on stretcher Head: normocephalic and atraumatic EYES: No injection, discharge or icterus. NECK: Trachea midline. LUNGS: Airway patent. No retractions. Breath sounds clear HEART: Regular rate and rhythm. No chest wall tenderness ABDOMEN: Soft with some left-sided abdominal tenderness. Not peritoneal. No gross masses appreciated. SKIN: Acyanotic, warm, dry, without rashes EXTREMITIES: Without swelling, tenderness or deformity NEUROLOGICAL: No focal deficits. No aphasia. No facial droop or slurred speech. EK beats per minute in sinus tachycardia. No PVC or PAC. No acute ST segment elevation or depression. QTC 452. CONTINUOUS CARDIAC MONITORING: was ordered and showed a heart rate of 100s-120s bpm in sinus tachycardia Patient's laboratory studies and imaging reviewed. Differential includes Appendicitis, infections, diverticulitis, UTI, obstr uction, mesenteric ischemia, aortic pathology, inflammatory bowel disease, renal colic, PUD, pancreatitis, biliary pathology, hernia, volvulus, constipation, as well as other pathologies. IMPRESSION/MEDICAL DECISION MAKING: Presents with some longstanding nausea with minimal vomiting denies diarrhea. Some left-sided abdominal pains reported. Saw gastroenterology today with outpatient blood work as well as CT scan. Dr. Rockwell her computer hardware designer called prior to arrival to alert me to her findings. Did note that AST and ALT were elevated in the low 100s but other basic blood work without severe findings. Repeat blood work obtained here. Outpatient CT scan report reviewed without evidence of obstruction or diverticulitis. Mild splenic enlargement noted. No significant gallbladder pathology was noted with some fatty liver changes. Patient's not an alcoholic. Does not appear septic at this time does report some intermittent fever and chills. Cultures and lactate only obtained. Per gastroenterology request an ultrasound of the liver will be obtained. Gastroenterology did recommend that the patient be admitted for further GI evaluation here patient was in agreement with this. Chest x-ray and Covid test was sent as she does report a bit of a cough at times. Blood work this evening shows persistent mild AST and ALT elevations. Slight leukocytosis still present with 13.91 with increased total absolute lymphocytes. The increased absolute lymphocytes should likely be followed up. Urinalysis not impressive and negative flu and Covid testing. TSH not abnormal and t roponin is not elevated. Wondering what her tachycardia related to some dehydration state given some IV fluids here. Did already had a CT scan today with contrast not having significant shortness of breath or hypoxia at this time lower suspicion for acute PE. This also would not explain her nausea symptoms. Patient's nausea was improved after some Zofran here and she had some ice chips. Still with some discomfort in the left abdomen but pain medication. Ultrasound liver obtained with report as below which is some fatty liver findings. Given the GI recommendations for further inpatient evaluation and with the patient's wish for further delineation of her significant symptoms the hospitalist was consulted. DIAGNOSIS: Elevated LFTs, nausea DISPOSITION: Hospitalist will evaluate Patient was agreeable with this plan. Preliminary Findings Only See Final Report For Complete Findings US LIVER: Exam is limited due to gas artifact in the bowel. There is obscuration of the head and tail of the pancreas with visualized portion within normal limits. The liver measures 15 cm. There is diffuse fatty infiltration with sparing in the gallbladder fossa. Normal portal vein with hepatopedal flow. Normal gallbladder with no gallstones. Small amount of sludge. Gallbladder wall measures 3 mm. Negative Gerard sign. Normal common bile duct measuring 4 mm Normal right kidney with no hydronephrosis. No signs of acute cholecystitis. Radiologist: Erin Seymour MD Study ready at 23:07 and initial results transmitted at 23:15 Past Med/Surg History Medical History Anxiety Asthma Chronic back pain History of endometriosis History of migraine headaches Osteoarthritis Sleep apnea Surgical History History of appendectomy History of colonoscopy History of esophagogastroduodenoscopy (EGD) History of laparoscopy History of lumbar fusion History of tooth extraction Family History Father Diabetes Mother History of anesthesia reaction Social History Smoking Status: Never smoker Second Hand Exposure: No; Hx Alcohol Use: No Hx Substance Use: No Preferred Language: Japanese Communication Ability: Effective Steel Rod Buster Required: No Beliefs That Will Affect Care: Latter Day Latter Day Beliefs: Jainism marital status: Current Living Situation: Spouse Feels Safe at Home: Yes Assistive Devices: None Allergies Allergies Allergy/AdvReac Type Severity Reaction Status Date / Time walnut Allergy Severe Anaphylaxis Verified 07/29/20 20:11 No Known Drug Allergies Allergy Verified 07/29/20 20:11 Home Meds Home Medications Medication Instructions Recorded Confirmed Breo Ellipta 1 inh INHALATION QAM 05/14/20 07/29/20 Xolair 75 mg SUBCUT MONTHLY 05/14/20 07/29/20 albuterol sulfate 1 inh INHALATION QID PRN 05/14/20 07/29/20 bupropion HCl 150 mg PO QAM 05/14/20 07/29/20 fluticasone propionate 1 spray INTRANASAL QAM 05/14/20 07/29/20 montelukast 10 mg PO QAM 05/14/20 07/29/20 Metamucil 1 tbsp PO DAILY 06/09/20 07/29/20 cetirizine 5 mg PO QAM 06/09/20 07/29/20 bupropion HCl 100 mg PO BID 07/29/20 07/29/20 Previous Rx's Medication Instructions Recorded lorazepam 1 mg tablet 1 mg PO DAILY PRN #1 tab 07/29/20 ondansetron HCl 4 mg tablet 4 mg PO Q8H #90 tab 07/29/20 Results & Data (ED) Vital Signs Vital Signs - 24 hr 07/29/20 18:19 07/29/20 19:17 07/29/20 19:56 Temperature 36.8 C Temperature Source Temporal Artery Scan Pulse Rate 119 H 105 H Pulse Rate from SpO2 Sensor 106 H Respiratory Rate 16 26 H Respiratory Effort / Characteristics Non-Labored Spontaneous Respiratory Depth Normal Respiratory Pattern Regular Blood Pressure 163/96 H 153/96 H Blood Pressure Mean 118 115 Pulse Oximetry 97 96 Oxygen Delivery Method Room Air Sepsis Recent Fever Within 48 Hours No Sepsis New/Unexplained Change in Mental Status N/A Sepsis Action Taken by Nursing No Action Required 07/29/20 21:39 07/29/20 22:00 07/29/20 23:03 Temperature Temperature Source Pulse Rate 117 H 112 H 107 H Pulse Rate from SpO2 Sensor 116 H 112 H 108 H Respiratory Rate 30 H 24 24 Respiratory Effort / Characteristics Respiratory Depth Respiratory Pattern Blood Pressure 155/89 H 143/95 H 131/93 Blood Pressure Mean 111 111 105 Pulse Oximetry 95 93 96 Oxygen Delivery Method Room Air Room Air Sepsis Recent Fever Within 48 Hours Sepsis New/Unexplained Change in Mental Status Sepsis Action Taken by Nursing 07/29/20 23:04 07/29/20 23:30 07/29/20 23:31 Temperature Temperature Source Pulse Rate 107 H 110 H 110 H Pulse Rate from SpO2 Sensor 106 H 110 H 107 H Respiratory Rate 21 22 24 Respiratory Effort / Characteristics Respiratory Depth Respiratory Pattern Blood Pressure 148/81 H Blood Pressure Mean 103 Pulse Oximetry 97 92 94 Oxygen Delivery Method Sepsis Recent Fever Within 48 Hours Sepsis New/Unexplained Change in Mental Status Sepsis Action Taken by Nursing 07/30/20 00:00 07/30/20 00:01 Temperature Temperature Source Pulse Rate 110 H 109 H Pulse Rate from SpO2 Sensor 109 H 109 H Respiratory Rate 15 19 Respiratory Effort / Characteristics Respiratory Depth Respiratory Pattern Blood Pressure 166/86 H Blood Pressure Mean 112 Pulse Oximetry 93 93 Oxygen Delivery Method Sepsis Recent Fever Within 48 Hours Sepsis New/Unexplained Change in Mental Status Sepsis Action Taken by Nursing Laboratory Data Result diagrams: 07/29/20 20:07 07/29/20 20:07 Lab Results 07/29/20 07/29/20 07/29/20 Range/Units 20:07 20:07 20:07 WBC 13.91 H (4.8-10.8) K/uL RBC 4.75 (4.2-5.4) M/uL Hgb 13.9 (12.0-16.0) g/dL Hct 42.1 (37-47) % MCV 88.6 (80-100) fL MCH 29.3 (25-34) pg MCHC 33.0 (32-36) g/dL RDW Std Deviation 50.1 H (36.4-46.3) fL RDW Coeff of [place] 15.4 H (11.5-14.5) % Plt Count 164 (130-400) K/uL MPV 9.4 (7.4-10.4) fL Neutrophils % (Manual) 18.3 % Lymphocytes % (Manual) 21.7 % Reactive Lymphs % (Man) 60.0 % Neutrophils # (Manual) 2.55 (1.4-6.5) K/uL Total Absolute Neuts 2.55 (1.4-6.5) K/uL Lymphocytes # (Manual) 3.02 (1.2-3.4) K/uL Reactive Lymphs # 8.35 K/uL Total Abs Lymphocytes 11.36 H (1.2-3.4) K/uL Sodium 136 (136-145) mmol/L Potassium 4.0 (3.5-5.1) mmol/L Chloride 104 (98-107) mmol/L Carbon Dioxide 24 (21-32) mmol/L Anion Gap 7.0 (3-11) BUN 4 L (7-18) mg/dl Creatinine 0.76 (0.6-1.2) mg/dl Est Cr Clr Drug Dosing 75.7 ml/min Est GFR ( Amer) 98.1 Est GFR (Non-Af Amer) 84.7 BUN/Creatinine Ratio 5.7 L (10-20) Glucose 85 (70-99) mg/dl Lactate 1.5 (0.4-2.0) mmol/L Calcium 9.1 (8.5-10.1) mg/dl Total Bilirubin 0.7 (0.2-1) mg/dl Direct Bilirubin 0.2 (0-0.2) mg/dl AST 125 H (15-37) U/L ALT 147 H (12-78) U/L Alkaline Phosphatase 243 H (45-117) U/L Troponin I < 0.015 (0-0.045) ng/ml Total Protein 8.1 (6.4-8.2) gm/dl Albumin 3.7 (3.4-5.0) gm/dl TSH 1.080 (0.300-4.500) uIu/ml Urine Color Urine Appearance (Clear) Urine pH (4.5-7.5) Ur Specific [place] (1.000-1.030) Urine Protein (Negative) Urine Glucose (UA) (Negative) Urine Ketones (Negative) Urine Blood (Negative) Urine Nitrite (Negative) Urine Bilirubin (Negative) Urine Urobilinogen (Negative) Ur Leukocyte Esterase (Negative) COVID-19 Eval Order SARS-CoV-2 (PCR) (Negative) Influenza Type A (PCR) (Neg) Influenza Type B (PCR) (Neg) RSV (RT-PCR) (Neg) 07/29/20 07/29/20 07/29/20 Range/Units 20:07 20:15 20:15 WBC (4.8-10.8) K/uL RBC (4.2-5.4) M/uL Hgb (12.0-16.0) g/dL Hct (37-47) % MCV (80-100) fL MCH (25-34) pg MCHC (32-36) g/dL RDW Std Deviation (36.4-46.3) fL RDW Coeff of Pay[place] (11.5-14.5) % Plt Count (130-400) K/uL MPV (7.4-10.4) fL Neutrophils % (Manual) % Lymphocytes % (Manual) % Reactive Lymphs % (Man) % Neutrophils # (Manual) (1.4-6.5) K/uL Total Absolute Neuts (1.4-6.5) K/uL Lymphocytes # (Manual) (1.2-3.4) K/uL Reactive Lymphs # K/uL Total Abs Lymphocytes (1.2-3.4) K/uL Sodium (136-145) mmol/L Potassium (3.5-5.1) mmol/L Chloride (98-107) mmol/L Carbon Dioxide (21-32) mmol/L Anion Gap (3-11) BUN (7-18) mg/dl Creatinine (0.6-1.2) mg/dl Est Cr Clr Drug Dosing ml/min Est GFR ( Amer) Est GFR (Non-Af Amer) BUN/Creatinine Ratio (10-20) Glucose (70-99) mg/dl Lactate (0.4-2.0) mmol/L Calcium (8.5-10.1) mg/dl Total Bilirubin (0.2-1) mg/dl Direct Bilirubin (0-0.2) mg/dl AST (15-37) U/L ALT (12-78) U/L Alkaline Phosphatase (45-117) U/L Troponin I (0-0.045) ng/ml Total Protein (6.4-8.2) gm/dl Albumin (3.4-5.0) gm/dl TSH (0.300-4.500) uIu/ml Urine Color Yellow Urine Appearance Clear (Clear) Urine pH 5.0 (4.5-7.5) Ur Specific [place] > 1.045 H (1.000-1.030) Urine Protein Negative (Negative) Urine Glucose (UA) Negative (Negative) Urine Ketones Negative (Negative) Urine Blood Negative (Negative) Urine Nitrite Negative (Negative) Urine Bilirubin Negative (Negative) Urine Urobilinogen Negative (Negative) Ur Leukocyte Esterase Negative (Negative) COVID-19 Eval Order CovFluRsv at [facility] SARS-CoV-2 (PCR) NEGATIVE (Negative) Influenza Type A (PCR) Negative (Neg) Influenza Type B (PCR) Negative (Neg) RSV (RT-PCR) Negative (Neg) Administered Medications Discontinued Medications Sodium Chloride (Nss 1000ml) 1,000 mls @ 999 mls/hr IV .[id number] ONE Stop: 07/29/20 21:06 Last Infusion: 07/29/20 21:29 Dose: 0 mls/hr Documented by: [id number] Admin: 07/29/20 20:06 Dose: 999 mls/hr Documented by: [id number] Ondansetron HCl (Ondansetron Inj 2 Mg/Ml 2 Ml Vial) 4 mg IV NOW STA Stop: 07/29/20 22:08 Last Admin: 07/29/20 22:26 Dose: 4 mg Documented by: [id number] Discharge Plan Visit Data Chief Complaint: Abdominal Pain Stated Complaint: ABDOMINAL PAIN ED Provider: Pedro Mccord Discharge Problem: Elevated LFTs, Nausea Forms Stand Alone Forms: [facility] Prescriptions Prescriptions: No Action ondansetron HCl [Zofran] 4 mg tablet 4 mg PO Q8H Qty: 90 RF: 0 lorazepam [Ativan] 1 mg tablet 1 mg PO DAILY PRN (Reason: anxiety) Qty: 1 RF: 0 montelukast 10 mg Tablet 10 mg PO QAM RF: 0 fluticasone propionate 50 mcg/actuation [place],Suspension 1 spray INTRANASAL QAM RF: 0 bupropion HCl 150 mg Tablet Extended Release 24 Hr 150 mg PO QAM RF: 0 Breo Ellipta 100-25 mcg/dose Blister With Device 1 inh INHALATION QAM RF: 0 albuterol sulfate 90 mcg/actuation Aerosol Powdr Breath Activated 1 inh INHALATION QID PRN (Reason: sob) RF: 0 Xolair 75 mg/0.5 mL Syringe 75 mg SUBCUT MONTHLY RF: 0 cetirizine 5 mg Tablet 5 mg PO QAM RF: 0 Metamucil 3.4 gram/5.4 gram Powder 1 tbsp PO DAILY RF: 0 bupropion HCl 100 mg tablet sustained-release 12 hr 100 mg PO BID RF: 0
[2020-07-29 20:22] LABS: Hematocrit (blood only) 42.1 % (37-47); Hemoglobin 13.9 g/dL (12.0-16.0); Mean Corpuscular Hemoglobin 29.3 pg (25-34); Mean Corpuscular Volume 88.6 fL (80-100); Mean Platelet Volume 9.4 fL (7.4-10.4); Platelet Count 164 K/uL (130-400); RDW Coefficient of Variation 15.4 % (11.5-14.5); RDW Standard Deviation 50.1 fL (36.4-46.3); Red Blood Count 4.75 M/uL (4.2-5.4); White Blood Count 13.91 K/uL (4.8-10.8)
[2020-07-29 20:38] LABS: Appearance Urine Clear (Clear); Bilirubin Urine Negative (Negative); Blood Urine Negative (Negative); Color Urine Yellow; Glucose Urine UA Negative (Negative); Ketones Urine Negative (Negative); Leukocyte Esterase Urine Negative (Negative); Nitrite Urine Negative (Negative); Protein Urine Negative (Negative); Specific Gravity Urine > 1.045 (1.000-1.030); Urobilinogen Urine Negative (Negative)
[2020-07-29 21:05] LABS: ALC (manual) 11.36 K/uL (1.2-3.4); ANC (manual) 2.55 K/uL (1.4-6.5); Lymphocytes # (manual) 3.02 K/uL (1.2-3.4); Lymphocytes % (manual) 21.7 %; Neutrophils # (manual) 2.55 K/uL (1.4-6.5); Neutrophils % (manual) 18.3 %; Reactive Lymphocytes # (manual) 8.35 K/uL
[2020-07-29 21:10] LABS: Influenza A virus by PCR Negative (Neg); Influenza B virus by PCR Negative (Neg); RSV by PCR Negative (Neg); SARS CoV2 RNA(COVID-19) InHosp NEGATIVE (Negative)
[2020-07-29 21:20] LABS: Bilirubin Direct 0.2 mg/dl (0-0.2)
[2020-07-29 21:21] LABS: Alanine Aminotransferase 147 U/L (12-78); Albumin Level 3.7 gm/dl (3.4-5.0); Alkaline Phosphatase 243 U/L (45-117); Aspartate Aminotransferase 125 U/L (15-37); BUN Creatinine Ratio 5.7 (10-20); Bilirubin,Total 0.7 mg/dl (0.2-1); Blood Urea Nitrogen 4 mg/dl (7-18); Calcium 9.1 mg/dl (8.5-10.1); Carbon Dioxide 24 mmol/L (21-32); Chloride 104 mmol/L (98-107); Creatinine Clr Calc Pharmacy 75.7 ml/min; Est GFR (African American) 98.1; Est GFR (Non-African American) 84.7; Glucose 85 mg/dl (70-99); Sodium 136 mmol/L (136-145); Total Protein 8.1 gm/dl (6.4-8.2)
[2020-07-29 21:48] LABS: Troponin I < 0.015 ng/ml (0-0.045)
[2020-07-29] MEDS ORDERED: ONDANSETRON INJ 2 MG/ML 2 ML VIAL IV STA (22:07)
--- NOTE | 2020-07-30 00:12 | History & Physical Report ---
Date of Service July 30, 2020 Assessment & Plan (1) Elevated LFTs: Etiology unclear -Check acute hepatitis panel, Ferritin, Acetaminophen level -Repeat LFTs in AM - if worse would consider additional imaging, CT vs MRI/MRCP -GI consultation appreciated Present on Admission?: Yes (2) Nausea: Etiology uncertain -Zofran PRN -IVF and electrolyte repletion -Workup of abnormal LFTs as above Present on Admission?: Yes (3) Sleep apnea: Chronic. Patient reports compliance with CPAP -CPAP qHS Present on Admission?: Yes (4) Asthma: Chronic. No SOB, cough or wheeze -Continue Cetirizine, Breo Ellipta and Albuterol Present on Admission?: Yes (5) Anxiety: Chronic, well controlled -Continue BUpropion -Ativan PRN Present on Admission?: Yes History of Present Illness Chief Complaint: nausea Primary Care Provider: Roxana Rodney MD Ashanti Muñoz is a 59yo female presenting with 6 weeks of nausea, intermittent LUQ abdominal pain. Patient had lumbar decompression performed on 06/09/20. She reports LUQ discomfort and ongoing nausea since the surgery. Her pain occurs mostly with sneezing and motion and is quite severe. Her nausea is continuous - she has not eaten much over the last 6 weeks. She denies CP, SOB, cough, hemoptysis, LE edema. No vomiting or diarrhea. Patient also reports intermittent fevers (temp of 99-101) and chills that occur at night as well as tachycardia. Patient denies change in skin color/eye color or change in stool or urine color. No additional complaints. No prior history of hepatitis. No tattoos or blood transfusions. No history of IVDU. She was taking Tylenol occasionally following the surgery - 3-6 tablets/day. No additional medication changes. Allergies Allergy/AdvReac Type Severity Reaction Status Date / Time walnut Allergy Severe Anaphylaxis Verified 07/29/20 20:11 No Known Drug Allergies Allergy Verified 07/29/20 20:11 Home Medications Medication Instructions Recorded Confirmed Type Breo Ellipta 1 inh INHALATION QAM 05/14/20 07/29/20 History Xolair 75 mg SUBCUT MONTHLY 05/14/20 07/29/20 History albuterol sulfate 1 inh INHALATION QID PRN 05/14/20 07/29/20 History bupropion HCl 150 mg PO QAM 05/14/20 07/29/20 History fluticasone propionate 1 spray INTRANASAL QAM 05/14/20 07/29/20 History montelukast 10 mg PO QAM 05/14/20 07/29/20 History Metamucil 1 tbsp PO DAILY 06/09/20 07/29/20 History cetirizine 5 mg PO QAM 06/09/20 07/29/20 History bupropion HCl 100 mg PO BID 07/29/20 07/29/20 History lorazepam 1 mg tablet 1 mg PO DAILY PRN #1 tab 07/29/20 07/29/20 Rx ondansetron HCl 4 mg tablet 4 mg PO Q8H #90 tab 07/29/20 07/29/20 Rx Past Med/Surg History Medical History Anxiety mild Asthma stable Chronic back pain History of endometriosis History of migraine headaches Osteoarthritis Sleep apnea CPAP Surgical History History of appendectomy History of colonoscopy History of esophagogastroduodenoscopy (EGD) History of laparoscopy History of lumbar fusion History of tooth extraction Family History Father Diabetes Mother History of anesthesia reaction vertigo Social History Smoking Status: Never smoker Second Hand Exposure: No; Hx Alcohol Use: No Hx Substance Use: No Preferred Language: Kuwaiti Communication Ability: Effective Business Instructor Required: No Beliefs That Will Affect Care: Adventism Adventism Beliefs: Mosque marital status: Current Living Situation: Spouse Feels Safe at Home: Yes Assistive Devices: None Review of Systems Review of Systems: All systems reviewed & are unremarkable except as noted in HPI & below Physical Exam Physical Exam: General: patient resting comfortably, NAD, non-toxic in appearance, AA&O x 4 Skin: warm, dry, intact, no rashes or lesions HEENT: NC/AT, PERRL, EOMI, anicteric sclera, conjunctiva without injection, external ear normal to inspection and nontender, nares patent, moist mucus membranes, dentition intact, no oropharyngeal lesions, neck supple, trachea midline, no LAD, no thyromegaly, no JVD Heart: +S1/S2, regular, tachycardic, no m/r/g Lungs: equal air entry bilaterally, no rales/rhonchi/wheezes Abd: +BS, soft, NT/ND, no masses/organomegaly/ascites Ext: warm, 2+ pulses in UE/LE bilaterally, no clubbing/cyanosis or edema Neuro: nonfocal, patient AA&O x 4, speech intact, no facial droop, moving all extremities on command with equal strength 5/5 Results & Data Results & Data ([facility]) Vital Signs (Past 12 Hours) Vital Signs Temp Pulse Resp BP Pulse Ox 07/29/20 23:03 107 H 24 131/93 96 07/29/20 22:00 112 H 24 143/95 H 93 07/29/20 21:39 117 H 30 H 155/89 H 95 07/29/20 19:56 105 H 26 H 153/96 H 96 07/29/20 18:19 36.8 C 119 H 16 163/96 H 97 Laboratory Results Lab Results 07/29/20 07/29/20 07/29/20 Range/Units 20:07 20:07 20:07 WBC 13.91 H (4.8-10.8) K/uL RBC 4.75 (4.2-5.4) M/uL Hgb 13.9 (12.0-16.0) g/dL Hct 42.1 (37-47) % MCV 88.6 (80-100) fL MCH 29.3 (25-34) pg MCHC 33.0 (32-36) g/dL RDW Std Deviation 50.1 H (36.4-46.3) fL RDW Coeff of Payton 15.4 H (11.5-14.5) % Plt Count 164 (130-400) K/uL MPV 9.4 (7.4-10.4) fL Neutrophils % (Manual) 18.3 % Lymphocytes % (Manual) 21.7 % Reactive Lymphs % (Man) 60.0 % Neutrophils # (Manual) 2.55 (1.4-6.5) K/uL Total Absolute Neuts 2.55 (1.4-6.5) K/uL Lymphocytes # (Manual) 3.02 (1.2-3.4) K/uL Reactive Lymphs # 8.35 K/uL Total Abs Lymphocytes 11.36 H (1.2-3.4) K/uL Sodium 136 (136-145) mmol/L Potassium 4.0 (3.5-5.1) mmol/L Chloride 104 (98-107) mmol/L Carbon Dioxide 24 (21-32) mmol/L Anion Gap 7.0 (3-11) BUN 4 L (7-18) mg/dl Creatinine 0.76 (0.6-1.2) mg/dl Est Cr Clr Drug Dosing 75.7 ml/min Est GFR ( Amer) 98.1 Est GFR (Non-Af Amer) 84.7 BUN/Creatinine Ratio 5.7 L (10-20) Glucose 85 (70-99) mg/dl Lactate 1.5 (0.4-2.0) mmol/L Calcium 9.1 (8.5-10.1) mg/dl Total Bilirubin 0.7 (0.2-1) mg/dl Direct Bilirubin 0.2 (0-0.2) mg/dl AST 125 H (15-37) U/L ALT 147 H (12-78) U/L Alkaline Phosphatase 243 H (45-117) U/L Troponin I < 0.015 (0-0.045) ng/ml Total Protein 8.1 (6.4-8.2) gm/dl Albumin 3.7 (3.4-5.0) gm/dl TSH 1.080 (0.300-4.500) uIu/ml Urine Color Urine Appearance (Clear) Urine pH (4.5-7.5) Ur Specific [place] (1.000-1.030) Urine Protein (Negative) Urine Glucose (UA) (Negative) Urine Ketones (Negative) Urine Blood (Negative) Urine Nitrite (Negative) Urine Bilirubin (Negative) Urine Urobilinogen (Negative) Ur Leukocyte Esterase (Negative) COVID-19 Eval Order SARS-CoV-2 (PCR) (Negative) Influenza Type A (PCR) (Neg) Influenza Type B (PCR) (Neg) RSV (RT-PCR) (Neg) 07/29/20 07/29/20 07/29/20 Range/Units 20:07 20:15 20:15 WBC (4.8-10.8) K/uL RBC (4.2-5.4) M/uL Hgb (12.0-16.0) g/dL Hct (37-47) % MCV (80-100) fL MCH (25-34) pg MCHC (32-36) g/dL RDW Std Deviation (36.4-46.3) fL RDW Coeff of Payton (11.5-14.5) % Plt Count (130-400) K/uL MPV (7.4-10.4) fL Neutrophils % (Manual) % Lymphocytes % (Manual) % Reactive Lymphs % (Man) % Neutrophils # (Manual) (1.4-6.5) K/uL Total Absolute Neuts (1.4-6.5) K/uL Lymphocytes # (Manual) (1.2-3.4) K/uL Reactive Lymphs # K/uL Total Abs Lymphocytes (1.2-3.4) K/uL Sodium (136-145) mmol/L Potassium (3.5-5.1) mmol/L Chloride (98-107) mmol/L Carbon Dioxide (21-32) mmol/L Anion Gap (3-11) BUN (7-18) mg/dl Creatinine (0.6-1.2) mg/dl Est Cr Clr Drug Dosing ml/min Est GFR ( Amer) Est GFR (Non-Af Amer) BUN/Creatinine Ratio (10-20) Glucose (70-99) mg/dl Lactate (0.4-2.0) mmol/L Calcium (8.5-10.1) mg/dl Total Bilirubin (0.2-1) mg/dl Direct Bilirubin (0-0.2) mg/dl AST (15-37) U/L ALT (12-78) U/L Alkaline Phosphatase (45-117) U/L Troponin I (0-0.045) ng/ml Total Protein (6.4-8.2) gm/dl Albumin (3.4-5.0) gm/dl TSH (0.300-4.500) uIu/ml Urine Color Yellow Urine Appearance Clear (Clear) Urine pH 5.0 (4.5-7.5) Ur Specific [place] > 1.045 H (1.000-1.030) Urine Protein Negative (Negative) Urine Glucose (UA) Negative (Negative) Urine Ketones Negative (Negative) Urine Blood Negative (Negative) Urine Nitrite Negative (Negative) Urine Bilirubin Negative (Negative) Urine Urobilinogen Negative (Negative) Ur Leukocyte Esterase Negative (Negative) COVID-19 Eval Order CovFluRsv at [facility] SARS-CoV-2 (PCR) NEGATIVE (Negative) Influenza Type A (PCR) Negative (Neg) Influenza Type B (PCR) Negative (Neg) RSV (RT-PCR) Negative (Neg) Diagnostic Findings RUQUS - Per STAT-rad - exam is limited due to gas artifact in the bowel. THere is obscuration of the head and tail of the pancreas with visualized portion within normal limits. The liver measures 15cm. There is diffuse fatty infiltration with sparing in the gallbladder fossa. Normal portal vein with hepatopedal flowl. Normal gallbladder wtih no gallstones. Small amount of sludge. Gallbladder wall measures 3mm. Negative Gerard sign. Normal CBD measuring 4mm. NOrmal right kidney with no hydronephrosis. NO signs of acute cholecystitis. Code Status & VTE Plan VTE Prophylaxis Plan VTE Prophylaxis will be ordered: Yes PG Care Time/CCT Total # of Minutes Spent Total Time Spent with Patient: Total time spent is greater than 50% in coordination of care (as documented) at patient's floor/unit and/or counseling patient: Coding Level of Care Code 86694 Initial Inpt Care Lvl 3 Diagnoses Elevated LFTs R79.89 Nausea R11.0 Sleep apnea G47.30 Sleep apnea type: unspecified type Asthma J45.909 Asthma severity: unspecified severity Asthma persistence: unspecified Asthma complication type: uncomplicated Anxiety F41.9 (1) Sleep apnea Sleep apnea type: unspecified type Qualified Code(s): G47.30 - Sleep apnea, unspecified (2) Asthma Asthma severity: unspecified severity Asthma persistence: unspecified Asthma complication type: uncomplicated Qualified Code(s): J45.909 - Unspecified asthma, uncomplicated
[2020-07-30] MEDS ORDERED: LORazepam 1 MG TAB PO PRN (01:44)
[2020-07-30] MEDS ORDERED: POLYETHYLENE (MIRALAX) 17 GM PACK PO PRN (01:44)
[2020-07-30] MEDS ORDERED: oxyCODONE HCL IR 5 MG TAB (IMMEDIATE RELEASE) PO PRN (01:44)
[2020-07-30] MEDS ORDERED: DOCUSATE SODIUM 100 MG CAP PO PRN (01:44)
[2020-07-30 02:31] LABS: Creatine Kinase 88 U/L (26-192); Magnesium 2.3 mg/dl (1.8-2.4); Phosphorus 3.8 mg/dl (2.5-4.9)
[2020-07-30] MEDS: LACTATED RINGER'S 1,000 ML IV SCH ×2 (02:44→13:07)
[2020-07-30 05:58] LABS: Hematocrit (blood only) 38.7 % (37-47); Hemoglobin 12.6 g/dL (12.0-16.0); Mean Corpuscular Hemoglobin 29.1 pg (25-34); Mean Corpuscular Hgb Conc 32.6 g/dL (32-36); Mean Corpuscular Volume 89.4 fL (80-100); Mean Platelet Volume 9.3 fL (7.4-10.4); Platelet Count 144 K/uL (130-400); RDW Coefficient of Variation 15.4 % (11.5-14.5); RDW Standard Deviation 50.9 fL (36.4-46.3); Red Blood Count 4.33 M/uL (4.2-5.4); White Blood Count 7.71 K/uL (4.8-10.8)
[2020-07-30] MEDS ORDERED: ENOXAPARIN INJ 40 MG/0.4 ML SYR SQ SCH (06:00)
[2020-07-30 06:06] LABS: Prothrombin Time 10.6 Seconds (9.0-12.0)
[2020-07-30 06:30] LABS: Albumin Level 2.9 gm/dl (3.4-5.0); BUN Creatinine Ratio 8.6 (10-20); Bilirubin Direct 0.2 mg/dl (0-0.2); Calcium 8.4 mg/dl (8.5-10.1); Creatinine Clr Calc Pharmacy 89.9 ml/min; Est GFR (African American) 111.6; Est GFR (Non-African American) 96.3; Potassium 3.5 mmol/L (3.5-5.1)
[2020-07-30 06:42] LABS: Bilirubin,Total 0.6 mg/dl (0.2-1); Ferritin 1164.5 ng/ml (8-388); Total Protein 6.5 gm/dl (6.4-8.2)
[2020-07-30 07:04] LABS: ANC (manual) 2.39 K/uL (1.4-6.5); Basophils # (manual) 0.14 K/uL (0-0.2); Basophils % (manual) 1.8 %; Eosinophils # (manual) 0.07 K/uL (0-0.5); Eosinophils % (manual) 0.9 %; Lymphocytes # (manual) 1.98 K/uL (1.2-3.4); Lymphocytes % (manual) 25.7 %; Monocytes # (manual) 0.41 K/uL (0.11-0.59); Monocytes % (manual) 5.3 %; Neutrophils # (manual) 2.39 K/uL (1.4-6.5); Reactive Lymphocytes # (manual) 2.72 K/uL; Reactive Lymphocytes % (manual) 35.3 %
--- NOTE | 2020-07-30 07:22 | XRay Report ---
SINGLE VIEW CHEST CLINICAL HISTORY: Cough. FINDINGS: 2 AP, portable, upright chest radiographs are compared to study dated 06/03/2020. The cardiom ediastinal silhouette is unremarkable. There are low lung volumes with bibasilar scarring/atelectasis . No airspace consolidation or large pleural effusion is identified. No pneumothorax is seen. The ske letal structures are osteopenic. The bony thorax is grossly intact. Fusion hardware is partially imag ed in the lumbar spine. IMPRESSION: No active disease in the chest. ACT 112: Negative or not required by law. Electronically signed by: Mac Boss M.D. 07/30/2020 7:21 AM
--- NOTE | 2020-07-30 08:00 | Ultrasound Report ---
US liver CLINICAL HISTORY: elevated lfts, nausea, pain COMPARISON STUDY: CT scan dated 07/29/2020 FINDINGS: The pancreas appears sonographically normal. No focal hepatic masses are visualized. There is slight increased hepatic echogenicity, likely second maira to hepatic steatosis. There is focal fatty sparing adjacent the gallbladder. There is no ductal dilatation. The common bile duct measures 4 mm. There is trace color sludge. No calculi are visualized. There is no gallbladder wall thickening. There is no right-sided hydronephrosis IMPRESSION: 1. Trace gallbladder sludge. Otherwise normal gallbladder. No stones. No wall thickening 2. No ductal dilatation. The common bile duct measures 4 mm 3. Slight increase in hepatic echogenicity, a nonspecific finding most often seen in hepatic steatosi s ACT 112: Negative or not required by law. Electronically signed by: Jose Alberto King M.D. 07/30/2020 7:58 AM
[2020-07-30] MEDS: ONDANSETRON INJ 2 MG/ML 2 ML VIAL IV PRN ×3 (08:50→22:16)
[2020-07-30] MEDS: FLUTICASONE/VILANTEROL 100/25MCG 14 PUFFS/INHALER INH SCH (08:50)
--- NOTE | 2020-07-30 08:55 | Electrocardiogram Report ---
Test Reason : Blood Pressure : / mmHG Vent. Rate : 113 BPM Atrial Rate : 113 BPM P-R Int : 172 ms QRS Dur : 078 ms QT Int : 330 ms P-R-T Axes : 042 -25 038 degrees QTc Int : 452 ms Sinus tachycardia Left atrial enlargement Left ventricular hypertrophy Possible Anterolateral infarct , age undetermined Abnormal ECG When compared with ECG of 03-JUN-2020 11:35, HR has increased by 28 bpm Loss of precordial R wave voltage (infarct vs. lead placement) Confirmed by Kwame Hull ([id number]) on 07/30/2020 8:54:57 AM Referred By: REFERRED SELF Confirmed By:Kwame Hull
[2020-07-30] MEDS: buPROPion SR 100 MG TABCR PO SCH ×2 (08:57→21:25)
[2020-07-30] MEDS: FLUTICASONE PROPIONATE NA SPR 16 GM BTL SCH (08:57)
[2020-07-30] MEDS: buPROPion XL 150 MG TABCR PO SCH (08:57)
[2020-07-30] MEDS: MONTELUKAST SODIUM 10 MG TABLET PO SCH (08:57)
[2020-07-30 09:13] LABS: Hepatitis B Surf Ag Rflx Conf Neg (Neg)
[2020-07-30 09:42] LABS: Hepatitis C IgG 13Yrs+Old_Rflx Neg (Neg)
--- NOTE | 2020-07-30 10:15 | Gastrointestinal Consultation ---
Date of Consultation July 30, 2020 Assessment & Plan (1) Elevated LFTs: -Continue to monitor LFTs -Await viral serologies (2) Left sided abdominal pain: -HIDA scan with ejection fraction today (3) Diarrhea: -Stool studies Supervising Physician Co-Signing Physician Notes Agree with NUHA Cobos as above Abd: Soft, Tender LUQ, ND, +BS, no appreciable HSM Continue current therapy HIDA Scan with EF secondary to abdominal pain and nausea. Hepatitis serologies pending Further recommendations to follow above noted testing. History of Present Illness Reason for Consultation: Abnormal LFTs Attending Physician: Jamilah Laurent MD History of Present Illness Patient is a 59 yo female who presented to our outpatient clinic on 07/29/20 with ongoing left sided abdominal pain x 6 weeks. She also reports associated nausea. These symptoms began after lumbar decompression on 06/09/20. The pain is not triggered by any particular foods. Nausea is constant and is not worsened or improved with eating. Pain is worsened with sneezing & movement. She had an unremarkable CT scan was unremarkable for acute issues. She was admitted due to ongoing symptoms & elevated LFTs. She reports that she began having diarrhea this morning. She notes at least 4 episodes of non-bloody diarrhea this morning. She reports ongoing LUQ abdominal pain. Her LFTs are presently as follows: AST 90, ALT 111, AP 198. Total and direct bilirubin are unremarkable. US of the liver indicates hepatic steatosis & gallbladder sludge. She has a family history of gallbladder issues, but denies liver abnormalities amongst her family members. No h/o of IVDA. She has taken Tylenol since her back surgery, but has stayed within the recommended daily dosing. Hepatitis A, B, & C testing pending. Allergies Allergy/AdvReac Type Severity Reaction Status Date / Time walnut Allergy Severe Anaphylaxis Verified 07/29/20 20:11 No Known Drug Allergies Allergy Verified 07/29/20 20:11 Home Medications Medication Instructions Recorded Confirmed Type Breo Ellipta 1 inh INHALATION QAM 05/14/20 07/29/20 History Xolair 75 mg SUBCUT MONTHLY 05/14/20 07/29/20 History albuterol sulfate 1 inh INHALATION QID PRN 05/14/20 07/29/20 History bupropion HCl 150 mg PO QAM 05/14/20 07/29/20 History fluticasone propionate 1 spray INTRANASAL QAM 05/14/20 07/29/20 History montelukast 10 mg PO QAM 05/14/20 07/29/20 History Metamucil 1 tbsp PO DAILY 06/09/20 07/29/20 History cetirizine 5 mg PO QAM 06/09/20 07/29/20 History bupropion HCl 100 mg PO BID 07/29/20 07/29/20 History lorazepam 1 mg tablet 1 mg PO DAILY PRN #1 tab 07/29/20 07/29/20 Rx ondansetron HCl 4 mg tablet 4 mg PO Q8H #90 tab 07/29/20 07/29/20 Rx Patient History Medical History Anxiety mild Asthma stable Chronic back pain History of endometriosis History of migraine headaches Osteoarthritis Sleep apnea CPAP Surgical History History of appendectomy History of colonoscopy History of esophagogastroduodenoscopy (EGD) History of laparoscopy History of lumbar fusion History of tooth extraction Family History Father Diabetes Mother History of anesthesia reaction vertigo Social History Smoking Status: Never smoker Second Hand Exposure: No; Hx Alcohol Use: No Hx Substance Use: No Preferred Language: Albanian Communication Ability: Effective Manager Military Required: No Beliefs That Will Affect Care: None marital status: Current Living Situation: Spouse Feels Safe at Home: Yes Assistive Devices: None Review of Systems Constitutional: no fever and no chills Respiratory: no cough and no dyspnea Cardiovascular: no chest pain Gastrointestinal: + abdominal pain, + nausea and + diarrhea/loose stools Integumentary: no change in skin color Hematologic / Lymphatic: no unexplained weight loss Physical Exam Constitutional: well developed Neck: normal visual inspection Respiratory: no cough Cardiovascular: Extremities: no edema Gastrointestinal (Abdomen): Percussion/Palpation: + abdomen tender and abdomen soft Musculoskeletal: Head/Neck/Chest: normocephalic Psychiatric: A+Ox3, euthymic affect Results & Data ([facility]) Vital Signs (Past 12 Hours) Vital Signs Temp Pulse Pulse Resp BP BP Pulse Ox 07/30/20 08:00 36.3 C L 101 H 18 140/75 96 07/30/20 01:51 37.4 C 107 H 130/81 95 07/30/20 01:15 36.8 C 07/30/20 01:02 105 H 22 151/89 H 94 07/30/20 00:30 107 H 25 H 139/95 93 07/30/20 00:01 109 H 19 93 07/30/20 00:00 110 H 15 166/86 H 93 07/29/20 23:31 110 H 24 94 07/29/20 23:30 110 H 22 148/81 H 92 07/29/20 23:04 107 H 21 97 07/29/20 23:03 107 H 24 131/93 96 PG Care Time/CCT Total # of Minutes Spent Total Time Spent with Patient: Total time spent is greater than 50% in coordination of care (as documented) at patient's floor/unit and/or counseling patient: Coding Level of Care Code 38299 Inpt Consult Level 4 Diagnoses Elevated LFTs R79.89 Left sided abdominal pain R10.9 Diarrhea R19.7
[2020-07-30] MEDS: CETIRIZINE HCL 10 MG TABLET PO SCH (10:49)
[2020-07-30] MEDS: PSYLLIUM 58.6% POWDER PACKET PO SCH (10:49)
[2020-07-30] MEDS ORDERED: ACETAMINOPHEN 325 MG TAB PO PRN (11:25)
[2020-07-30] MEDS ORDERED: PROMETHAZINE HCL 6.25 MG in SODIUM CHLORIDE 0.9% 50 ML IV PRN (11:25)
[2020-07-30] MEDS ORDERED: MELATONIN 3 MG TAB PO PRN (11:26)
--- NOTE | 2020-07-30 15:42 | Hospitalist Progress Note ---
Date of Service July 30, 2020 Assessment & Plan (1) Nausea: Mrs. Muñoz is a 59 yo woman who was admitted for nausea/vomiting and left upper quadrant pain for 6 weeks duration. Nausea: ongoing - Etiology uncertain. Duration makes enteritis unlikely. No associated vertiginous symptoms. - No gross abnormalities on A/P CT scan - Liver US showing evidence of gallbladder sludge, but no stones. - GI recommending HIDA scan to assess gallbladder ejection fraction. Scheduled for 08/01/20. - Zofran PRN - clear liquid diet, NPO at midnight on 08/01/20 Left Upper Quadrant Pain: ongoing - A/P CT scan showing mild splenomegaly. Colonic diverticulosis (not litis). No other abnormalities. - WBC normal. New onset malignancy unlikley - tylenol prn for pain - follow Elevated LFTs: improving - AST 134 --> 90 - ALT 156 --> 111 - baseline values unknown - Etiology unclear: patient denies etoh use. Acetaminophen level normal. Hepatitis panel pending. May be secondary to transient viral illness or non-al coholic fatty liver disease - A/P CT showing evidence of borderline hepatic steatosis. Liver US showing mild hepatic steatosis. - Ferritin and CRP (acute phase reactants) elevated. - Trend Colonic Diverticulosis - chronic - continue daily Metamucil Sleep apnea: - Chronic. Patient reports compliance with CPAP -CPAP qHS Asthma: - Chronic. -Continue Cetirizine, Breo Ellipta and Albuterol Anxiety: - Chronic, well controlled - Continue Bupropion - Ativan PRN FENGI: clear liquids. NPO at midnight on 07/31 DVT ppx: Lovenox SQ Dispo: Med/surg Code: Full Admission and Anticipated Discharge Date Admission Date: July 30, 2020 Supervising Physician Co-Signing Physician Notes Resident Physician Supervision Note: I independently interviewed and examined the patient and verified the maloney history and physical, reviewed labs and image studies, discussed the case with the resident Dr. Stewart and agree with the findings and care plan. Subjective Patient reports ongoing nausea - she says she has felt nauseous constantly since her lumbar decompression in May 2020. It tends to worsen when she tries to consume any food. She saw her PCP about it between the surgery and now, who treated her with 7 days of Ciprofloxacin for presumed flare of diverticulitis (she has a history of this). However, Mrs. Muñoz denies any improvement with cipro course. She has had an appendectomy. Her last colonoscopy was 10 years ago - it was normal and 10 year follow up was recommended. Review of Systems Constitutional: + LAD Gastrointestinal: + nausea and + vomiting; no abdominal pain Physical Exam Constitutional: WD/WN, vitals as above cooperative; no acute distress Eyes: + anicteric sclerae ENMT: external ear and nose normal, oropharynx normal Neck: normal visual inspection and trachea midline Respiratory: normal respiratory effort, lungs clear to auscultation Cardiovascular: RRR, no murmur, no edema Heart Sounds: normal S1 and normal S2 Gastrointestinal (Abdomen): Inspection/Auscultation: abdomen normal to inspection and normal bowel sounds Percussion/Palpation: + abdomen tender (LUQ) and abdomen soft Skin: no rashes, warm and dry no jaundice Psychiatric: A+Ox3, euthymic affect Lymphatic: + cervical lymphadenopathy; no preauricular lymphadenopathy and no axillary lymphadenopathy Results & Data Results & Data ([facility]) Vital Signs (Past 12 Hours) Vital Signs Temp Pulse Resp BP Pulse Ox 07/30/20 08:00 36.3 C L 101 H 18 140/75 96 Resident Activity Tracking Resident Involvement: Resident Care Provided Care Provided: Adult Hospital Medicine
[2020-07-31 05:48] LABS: Hematocrit (blood only) 37.3 % (37-47); Hemoglobin 11.9 g/dL (12.0-16.0)
[2020-07-31 06:27] LABS: Albumin Level 2.9 gm/dl (3.4-5.0); BUN Creatinine Ratio 8.1 (10-20); Calcium 7.7 mg/dl (8.5-10.1); Creatinine Clr Calc Pharmacy 92.8 ml/min; Est GFR (African American) 112.8; Est GFR (Non-African American) 97.3; Potassium 3.5 mmol/L (3.5-5.1)
[2020-07-31 06:30] LABS: Albumin Globulin Ratio 0.8 (0.9-2); Bilirubin,Total 0.9 mg/dl (0.2-1); Globulin 3.6 gm/dl (2.5-4.0); Total Protein 6.5 gm/dl (6.4-8.2)
--- NOTE | 2020-07-31 09:49 | Hospitalist Progress Note ---
Date of Service July 31, 2020 Assessment & Plan (1) Nausea: Mrs. Muñoz is a 59 yo woman who was admitted for nausea/vomiting and left upper quadrant pain for 6 weeks duration. Nausea: ongoing - Etiology uncertain. Duration makes enteritis unlikely. No associated vertiginous symptoms. BUN not elevated. - No gross abnormalities on A/P CT scan - Liver US showing evidence of gallbladder sludge, but no stones. - GI recommending HIDA scan to assess gallbladder ejection fraction. Scheduled for 08/01/20. - Peptic ulcer disease, gastroparesis remain on differential. - Zofran PRN - start protonix 40mg daily - clear liquid diet, NPO at midnight on 08/01/20 Left Upper Quadrant Pain: ongoing - A/P CT scan showing mild splenomegaly. Colonic diverticulosis (not litis). No other abnormalities. - WBC normal. New onset malignancy unlikley - tylenol prn for pain - follow Elevated LFTs: improving - AST 134 --> 77 - ALT 156 --> 99 - baseline values unknown - Etiology unclear: patient denies etoh use. Acetaminophen level normal. Hepatitis panel pending. May be secondary to transient viral illness or non- alcoholic fatty liver disease - A/P CT showing evidence of borderline hepatic steatosis. Liver US showing mild hepatic steatosis. - Ferritin and CRP (acute phase reactants) elevated. - Trend Diarrhea - one episode of watery/bloody diarrhea reported on afternoon of 07/30 - cdiff negative. WBC normal. infectious source unlikely - follow Colonic Diverticulosis - chronic - continue daily Metamucil Sleep apnea: - Chronic. Patient reports compliance with CPAP - CPAP qHS Asthma: - Chronic. - Continue Cetirizine, Breo Ellipta and Albuterol Anxiety: - Chronic, well controlled - Continue Bupropion - Ativan PRN FENGI: clear liquids. NPO at midnight in anticipation of HIDA DVT ppx: Lovenox SQ Dispo: Med/surg Code: Full Admission and Anticipated Discharge Date Admission Date: July 30, 2020 Supervising Physician Co-Signing Physician Notes Resident Physician Supervision Note: I independently interviewed and examined the patient and verified the maloney history and physical, reviewed labs and image studies, discussed the case with the resident Dr. Stewart and agree with the findings and care plan. Subjective no acute events overnight. At the end of shift yesterday, she did have an episode of watery/bloody diarrhea - no further episodes. She was made NPO - however this morning she reported begin even more nauseous than last night (although no vomiting). She thinks her nausea is worse from not eating. She requests her clear liquid diet be re-ordered. She reports her father had his gallbladder out. Review of Systems Gastrointestinal: + abdominal pain and + nausea; no vomiting Physical Exam Constitutional: WD/WN, vitals as above cooperative; no acute distress Eyes: + anicteric sclerae ENMT: external ear and nose normal, oropharynx normal Neck: normal visual inspection and trachea midline Respiratory: normal respiratory effort, lungs clear to auscultation Cardiovascular: RRR, no murmur, no edema Heart Sounds: normal S1 and normal S2 Gastrointestinal (Abdomen): Inspection/Auscultation: abdomen normal to inspection and normal bowel sounds Percussion/Palpation: + abdomen tender (LUQ) and abdomen soft Skin: no rashes, warm and dry no jaundice Psychiatric: A+Ox3, euthymic affect Lymphatic: + cervical lymphadenopathy; no preauricular lymphadenopathy and no axillary lymphadenopathy Results & Data Results & Data ([facility] [place]) Vital Signs (Past 12 Hours) Vital Signs Temp Pulse Resp BP BP Pulse Ox 07/31/20 07:31 37.6 C H 101 H 16 148/92 H 94 07/30/20 22:53 139/80 07/30/20 22:11 37.5 C 110 H 18 157/98 H 93 Resident Activity Tracking Resident Involvement: Resident Care Provided Care Provided: Adult Hospital Medicine
[2020-07-31] MEDS: FLUTICASONE PROPIONATE NA SPR 16 GM BTL SCH (09:59)
[2020-07-31] MEDS: FLUTICASONE/VILANTEROL 100/25MCG 14 PUFFS/INHALER INH SCH (09:59)
[2020-07-31] MEDS: CETIRIZINE HCL 10 MG TABLET PO SCH (09:59)
[2020-07-31] MEDS: buPROPion XL 150 MG TABCR PO SCH (09:59)
[2020-07-31] MEDS: MONTELUKAST SODIUM 10 MG TABLET PO SCH (09:59)
[2020-07-31] MEDS: buPROPion SR 100 MG TABCR PO SCH ×2 (09:59→21:59)
[2020-07-31] MEDS: PANTOprazole 40 MG TAB PO SCH (10:42)
--- NOTE | 2020-07-31 10:55 | Gastroenterology Progress Note ---
Date of Service July 31, 2020 Assessment & Plan (1) Left sided abdominal pain: -Improving with light diet -Awaiting HIDA scan (2) Elevated LFTs: -Improving -Continue to trend -Await HIDA Scan (3) Diarrhea: -Resolved Admission and Anticipated Discharge Date Admission Date: July 30, 2020 Supervising Physician Co-Signing Physician Notes Agree with NUHA Cobos as above She reports a fever, nausea and RUQ abdominal pain today Abd: Soft, Tender RUQ, ND, +BS HIDA scan in the AM Liver panel has improved Subjective Patient is a 59 yo female with left sided abdominal pain. Pain is improving since eating a modified diet in the hospital. She notes that antiemetics seem to be improving her symptoms. She is awaiting a HIDA scan. Her LFT elevation is improving. AST 77, ALT 99. Alk phos 200. Diarrhea resolved. C diff study negative. Stool culture pending. Hep C testing negative. Review of Systems Constitutional: no fever and no chills Respiratory: no cough and no dyspnea Cardiovascular: no chest pain Gastrointestinal: + abdominal pain (improving); no change in bowel habits diarrhea resolved Physical Exam Constitutional: well developed Respiratory: normal respiratory effort Cardiovascular: Extremities: no edema Gastrointestinal (Abdomen): Inspection/Auscultation: abdomen normal to inspection Psychiatric: A+Ox3, euthymic affect Results & Data Results & Data ([facility]) Vital Signs (Past 12 Hours) Vital Signs Temp Pulse Resp BP BP Pulse Ox 07/31/20 07:31 37.6 C H 101 H 16 148/92 H 94 07/30/20 22:53 139/80 PG Care Time/CCT Total # of Minutes Spent Total Time Spent with Patient: Total time spent is greater than 50% in coordination of care (as documented) at patient's floor/unit and/or counseling patient: Coding Level of Care Code 66606 Subseq Hosp Care Lvl 3 Diagnoses Left sided abdominal pain R10.9 Elevated LFTs R79.89 Diarrhea R19.7
[2020-07-31] MEDS: PSYLLIUM 58.6% POWDER PACKET PO SCH (12:13)
[2020-07-31] MEDS: ONDANSETRON INJ 2 MG/ML 2 ML VIAL IV PRN (14:04)
--- NOTE | 2020-08-01 10:19 | Communication Note ---
Date of Service: August 01, 2020 Patient is off the floor for her imaging study this morning. Upon chart review, it appears she has been febrile over the past 24 hours. She developed RUQ pain yesterday. LFTs today are not available at this time. She reported worsening abdominal pain to Dr. Rockwell yesterday afternoon. -Await results of HIDA scan; Will make further recommendations pending results -Continue to trend LFTs -Monitor temp -Will follow-up with patient after testing is complete. Thank you for allowing us to participate in the care of this patient. If you should have any further questions or concerns, do not hesitate to contact us at extension [phone] or [phone]. Discussed findings of abnormal HIDA scan with patient and arranged for followup with Dr. Cortes of surgery for cholecystectomy. Patient was in agreement with plan, and stable for discharge from GI standpoint. Thanks.
--- NOTE | 2020-08-01 10:31 | Nuclear Medicine Report ---
NM hepatobiliary EF CLINICAL HISTORY: elevated LFT's, Abdominal pain COMPARISON STUDY: CT of the abdomen and pelvis and right upper quadrant ultrasound July 29, 2020. TECHNIQUE: 5.5 mCi of technetium 99m Choletec was injected IV at 8:05 AM on August 01, 2020. Immediately following injection, imaging of the abdomen was carried out in the anterior projection for 60 minutes . At this time, Boost was given imaging was carried out for an additional 45 minutes to estimate gall bladder ejection fraction. FINDINGS: Hepatic uptake of radiotracer is prompt and homogeneous. Activity is identified within the common bile duct and the gallbladder at 20 minutes. Small bowel activity is noted at 25 minutes. Afte r administration of Boost, diminished gallbladder ejection fraction of 3% was noted. Normal is greate r than 30%. IMPRESSION: 1. No evidence for acute cholecystitis. 2. Significantly diminished gallbladder ejection fraction which may indicate gallbladder dysfunction in the correct clinical setting. ACT 112: Negative or not required by law. Electronically signed by: Suman Rodriguez M.D. 08/01/2020 10:30 AM
[2020-08-01] MEDS: FLUTICASONE PROPIONATE NA SPR 16 GM BTL SCH (10:51)
[2020-08-01] MEDS: FLUTICASONE/VILANTEROL 100/25MCG 14 PUFFS/INHALER INH SCH (10:51)
[2020-08-01] MEDS: PSYLLIUM 58.6% POWDER PACKET PO SCH (10:56)
[2020-08-01] MEDS: buPROPion XL 150 MG TABCR PO SCH (10:58)
[2020-08-01] MEDS: CETIRIZINE HCL 10 MG TABLET PO SCH (10:59)
[2020-08-01] MEDS: PANTOprazole 40 MG TAB PO SCH (10:59)
[2020-08-01] MEDS: MONTELUKAST SODIUM 10 MG TABLET PO SCH (10:59)
[2020-08-01] MEDS: buPROPion SR 100 MG TABCR PO SCH (10:59)
--- NOTE | 2020-08-01 14:32 | Discharge Summary ---
Date of Service August 01, 2020 Admission HPI Per Admitting Provider Ashanti Muñoz is a 59yo female presenting with 6 weeks of nausea, intermittent LUQ abdominal pain. Patient had lumbar decompression performed on 06/09/20. She reports LUQ discomfort and ongoing nausea since the surgery. Her pain occurs mostly with sneezing and motion and is quite severe. Her nausea is continuous - she has not eaten much over the last 6 weeks. She denies CP, SOB, cough, hemoptysis, LE edema. No vomiting or diarrhea. Patient also reports intermittent fevers (temp of 99-101) and chills that occur at night as well as tachycardia. Patient denies change in skin color/eye color or change in stool or urine color. No additional complaints. No prior history of hepatitis. No tattoos or blood transfusions. No history of IVDU. She was taking Tylenol occasionally following the surgery - 3-6 table ts/day. No additional medication changes. Admission Exam Per Admitting Provider General: patient resting comfortably, NAD, non-toxic in appearance, AA&O x 4 Skin: warm, dry, intact, no rashes or lesions HEENT: NC/AT, PERRL, EOMI, anicteric sclera, conjunctiva without injection, external ear normal to inspection and nontender, nares patent, moist mucus membranes, dentition intact, no oropharyngeal lesions, neck supple, trachea midline, no LAD, no thyromegaly, no JVD Heart: +S1/S2, regular, tachycardic, no m/r/g Lungs: equal air entry bilaterally, no rales/rhonchi/wheezes Abd: +BS, soft, NT/ND, no masses/organomegaly/ascites Ext: warm, 2+ pulses in UE/LE bilaterally, no clubbing/cyanosis or edema Neuro: nonfocal, patient AA&O x 4, speech intact, no facial droop, moving all extremities on command with equal strength 5/5 Principal Diagnosis Functional gall bladder disorder Discharge Exam Constitutional: WD/WN, vitals as above cooperative; no acute distress ENMT: external ear and nose normal, oropharynx normal Neck: normal visual inspection and trachea midline Respiratory: normal respiratory effort, lungs clear to auscultation Cardiovascular: RRR, no murmur, no edema Heart Sounds: normal S1 and normal S2 Gastrointestinal (Abdomen): Inspection/Auscultation: abdomen normal to inspection and normal bowel sounds Percussion/Palpation: abdomen soft non tender Skin: no rashes, warm and dry no jaundice Psychiatric: A+Ox3, euthymic affect Discharge Data Allergies Allergy/AdvReac Type Severity Reaction Status Date / Time walnut Allergy Severe Anaphylaxis Verified 07/29/20 20:11 No Known Drug Allergies Allergy Verified 07/29/20 20:11 Consultations 07/29/20 23:24 ED Decision to Admit Stat 07/30/20 01:44 Consult Gastroenterology Routine Ordered Studies 07/29/20 19:54 US liver Urgent Hospital Course (1) Nausea: Mrs. Muñoz is a 59 yo woman who was admitted for nausea/vomiting and left upper quadrant pain for 6 weeks duration. Nausea and LUQ pain: Improved - Liver US showing evidence of gallbladder sludge, but no stones. - GI recommended HIDA scan which showed reduced EF - COuld be indicative of functional gall bladder disorder, plan is for elective outpatient cholecystectomy - Peptic ulcer disease, gastroparesis remain on differential patient started on pantoprazole 40 mg PO qam - Zofran dissolvable tabs PRN for nausea on discharge - start protonix 40mg daily - continue with clear liquid diet until surgery, plan is to call her when it is scheduled Elevated LFTs: improving - AST 134 --> 77 - ALT 156 --> 99 - bilirubin normal throughout - Etiology unclear: patient denies etoh use. Acetaminophen level normal. He patitis panel negative. May be secondary to transient viral illness or non- alcoholic fatty liver disease - A/P CT showing evidence of borderline hepatic steatosis. Liver US showing mild hepatic steatosis. - Ferritin and CRP (acute phase reactants) elevated. Recommend repeat ferritin testing as outpatient to rule out Hemachromatosis Diarrhea - one episode of watery/bloody diarrhea reported on afternoon of 07/30 - cdiff negative. WBC normal. infectious source unlikely - Has since normalized Colonic Diverticulosis - chronic - continue daily Metamucil Sleep apnea: - Chronic. Patient reports compliance with CPAP - CPAP qHS Asthma: - Chronic. - Continue Cetirizine, Breo Ellipta and Albuterol Anxiety: - Chronic, well controlled - Continue Bupropion Total Time Total Time Spent Total Time Spent (In Minutes): 25 Discharge Plan Discharge Items Patient Disposition: Home - Self-Care Reason For Visit: ABNORMAL LFT Discharge Diagnosis: Cholestasis Activity: Per Instructions section Non-emergency contact: Primary Care Provider and Road Passenger Firer Call non-emergency contact if: you have any medication questions, your symptoms worsen and your temperature is above 101 Follow-up/Referrals: Teto Cortes DO, FACS [Physician] - 08/04/20 9:00 am (Please call to schedule follow up in the surgery clinic next Tuesday or Tuesday with Dr. Cortes. We will plan to place you on the OR schedule to have your gallbladder removed on Tuesday08/06/[address] Cortes.) Roxana Rodney MD [Primary Care Provider] - Diet: Clear liquid Addtl Attending Provider Instructions: Ms. Muñoz, It was a pleasure taking care of you for your abdominal pain and queasiness. We believe that your pain was likely secondary to your gall bladder dysfunction and the plan will be for cholecystectomy (gall bladder removal) as an outpatient. Until that time I would follow GI and surgeries recommendation for diet and return to medical care if pain is becoming uncontrollable or you are having fevers or chills. We will be sending you home with two new medicines, pantoprazole to be taken each morning and zofran to be taken as needed for nausea. We wish you all the best moving forward. Pending Studies at Discharge: No Stand-Alone Forms: My [facility], Smoking Cessation Medications and DC Order Prescriptions: New polyethylene glycol 3350 [Miralax] 17 gram Powder In Packet 17 g PO DAILY PRNQty: 0 RF: 0 pantoprazole 40 mg Tablet,Delayed Release (Dr/Ec) 40 mg PO QAM 10 Days Qty: 10 RF: 0 docusate sodium 100 mg Capsule 100 mg PO BID PRNQty: 0 RF: 0 Metamucil (with sugar) 3.4 gram Powder In Packet 1 pkg PO QAM Qty: 0 RF: 0 ondansetron 4 mg tablet,disintegrating 4 mg PO Q8H PRN (Reason: nausea and vomiting) 5 Days Qty: 20 RF: 0 Continued ondansetron HCl [Zofran] 4 mg tablet 4 mg PO Q8H Qty: 90 RF: 0 lorazepam [Ativan] 1 mg tablet 1 mg PO DAILY PRN (Reason: anxiety) Qty: 1 RF: 0 montelukast 10 mg Tablet 10 mg PO QAM RF: 0 fluticasone propionate 50 mcg/actuation [place],Suspension 1 spray INTRANASAL QAM RF: 0 bupropion HCl 150 mg Tablet Extended Release 24 Hr 150 mg PO QAM RF: 0 Breo Ellipta 100-25 mcg/dose Blister With Device 1 inh INHALATION QAM RF: 0 albuterol sulfate 90 mcg/actuation Aerosol Powdr Breath Activated 1 inh INHALATION QID PRN (Reason: sob) RF: 0 Xolair 75 mg/0.5 mL Syringe 75 mg SUBCUT MONTHLY RF: 0 cetirizine 5 mg Tablet 5 mg PO QAM RF: 0 Metamucil 3.4 gram/5.4 gram Powder 1 tbsp PO DAILY RF: 0 bupropion HCl 100 mg tablet sustained-release 12 hr 100 mg PO BID RF: 0 Discharge Orders: Discharge Order (Routine); Ordered 08/01/20 Ordered By: Arun Siu/Other Patient Handouts: Having Laparoscopic Cholecystectomy Admission Data Admit Date/Time: 07/30/20 00:10 Attending Provider: Jamilah Laurent Admit Provider: Amy Salvador Primary Care Provider: Roxana Rodney V. Other Providers: Amy Salvador ; Jonathan Rockwell Other Interventions: Discharge Summary Assessment (RN) Last Done: 08/01/20 14:07 Supervising Physician Co-Signing Physician Notes Resident Physician Supervision Note: I independently interviewed and examined the patient and verified the maloney history and physical, reviewed labs and image studies and agree with resident Dr. Hughes findings and care plan. Resident Activity Tracking Resident Involvement: Resident Care Provided Care Provided: Adult Hospital Medicine
[2020-08-01 14:46] LABS: Hepatitis A Antibody IgM NON-REACTIVE (NON-REACTIVE); Hepatitis B Core Antibody IgM NON-REACTIVE (NON-REACTIVE)
== END 2020-08-01 14:31 | disposition home or self-care (01) | DRG 446 ==
LOC: ED 18:16 → 3N 07-30 00:10 → SUATTDRO 07-30 00:10 → 3N 07-30 01:14